=== PATIENT | male | born 1945 | race Caucasian/White ===

== ENCOUNTER 2017-01-03 12:50 | Inpatient (IN) | payer MEDICARE, MEDICAID ==
[~2017-01-03] VITALS: Ht 162.6 cm; Wt 82.0 kg
[2017-01-03] MEDS ORDERED: CLINDAMYCIN 900 MG/D5W (PMX) 50 ML IVPB STA (15:25)
[2017-01-03] MEDS ORDERED: ONDANSETRON 4 MG INJ IV STA (15:25)
[2017-01-03] MEDS ORDERED: VANCOMYCIN 1 GM (PMX) 250 ML IVPB STA (15:25)
[2017-01-03] MEDS ORDERED: PIPER-TAZO 3.375 GM IV (PMX) 100 ML IVPB STA (15:25)
[2017-01-03] MEDS ORDERED: morphine 4 MG/ML VIAL IV STA (15:25)
--- NOTE | 2017-01-03 15:39 | ERA ---
ER Documentation Chief Complaint Date/Time DATE: 01/03/17 TIME: 15:27 Chief Complaint left knee pain x 3 weeks, redness and swelling to lower leg noted HPI This is a very pleasant 71-year-old male with known history of non-insulin- dependent diabetes and hypertension. The patient presents to the emergency department today complaining of left knee pain that has been present for approximately 3 weeks. The patient states that the pain began when he was in [place] when he noticed a sudden onset of severe swelling warmth and tenderness of the left knee that extended down into the left lower extremity. The patient denies any trauma to the left knee or lower extremity. He denies any previous joint infections, no pre-existing joint diseases, or prosthesis. He has no history of IV drug use or endocarditis. The patient denied any insect bites to the left lower extremity. He was admitted to a hospital in [place] for 2 weeks where he received IV antibiotics for cellulitis of the left lower extremity. He completed the antibiotic 7 days prior to arrival. The patient had been given a prescription of acetaminophen for analgesic control and [place]. He states however he returns to the emergency department today as the swelling has improved the pain of the left knee and left lower extremity still persists and is 10 out of 10 in intensity the patient states he has had no fevers or shaking or chills. He denies any chest pain or pressure that radiates to the neck arm back or jaw. He has no shortness of breath at rest or exertion. ROS All systems reviewed and are negative except as per history of present illness. Allergies Allergies: Coded Allergies: No Known Allergy (Unverified , 01/03/17) PMhx/Soc History of Surgery: Yes (APPENIDX) Anesthesia Reaction: No Hx Neurological Disorder: No Hx Respiratory Disorders: Yes (ASTHMA) Hx Psychiatric Problems: No Hx Miscellaneous Medical Probl: Yes (DM) Hx Alcohol Use: No Hx Substance Use: No Hx Tobacco Use: No Smoking Status: Never smoker Physical Exam Vitals Vital Signs Date Time Temp Pulse Resp B/P Pulse Ox O2 Delivery O2 Flow Rate FiO2 01/03/17 12:57 98.6 94 18 161/67 97 Physical Exam Constitutional:Well-developed. Well-nourished. HEENT:Normocephalic. Atraumatic.Pupils were equal round reactive to light. Moist mucous membranes.No tonsillar exudates. Neck: No nuchal rigidity. No lymphadenopathy. No posterior cervical spine tenderness or step-offs. Respiratory: Not using accessory muscles of respiration.Lungs were clear to auscultation bilaterally. No rhonchi. No rales. No wheezing. Cardiovascular: Regular rate regular rhythm.No murmurs. No rubs were appreciated.S1, S2 normal. Distal pulses are palpable 2+ bilaterally. GI: Abdomen was soft. Nontender. Non Distended. No pulsatile abdominal masses or bruits. No rebound. No guarding. Bowel sounds were present and normal. Muscle skeletal: Patient is full range of motion the bilateral upper extremities. Tenderness swelling and warmth isolated to the left knee with extremely painful joint motion in all planes. Left calf tenderness with no asymmetrical swelling. Negative Homans sign peer Skin: No petechia, no purpura. No lesions on the palms or the soles of the feet. No maculopapular rash. Erythremia warmth and tenderness over the proximal third of the left anterior aspect of the lower extremity. NEURO: Patient was alert, awake, orientated x3.No facial droop. Gait observed and normal with no ataxia.Speech had regular rate and rhythm. No focal neurological deficits. Result Diagram: 01/03/17 1635 01/03/17 1635 Results 24 hrs Laboratory Tests Test 01/03/17 16:35 Activated Partial Thromboplast Time 34.0Sec Alanine Aminotransferase (ALT/SGPT) 19IU/L Albumin 3.1g/dl Albumin/Globulin Ratio 0.88 Alkaline Phosphatase 94IU/L Anion Gap 16 Aspartate Amino Transf (AST/SGOT) 16IU/L Basophils # 0.010^3/ul Basophils % 0.3% Blood Urea Nitrogen 17mg/dl C-Reactive Protein 8.1mg/dl Calcium Level 8.7mg/dl Carbon Dioxide Level 30mmol/L Chloride Level 101mmol/L Creatinine 0.70mg/dl Direct Bilirubin 0.00mg/dl Eosinophils # 0.310^3/ul Eosinophils % 3.0% Erythrocyte Sedimentation Rate 65mm/Hr Globulin 3.50g/dl Glucose Level 195mg/dl Hematocrit 36.8% Hemoglobin 11.5g/dl INR International Normalized Ratio 1.04 Indirect Bilirubin 0.3mg/dl Lipase 112U/L Lymphocytes # 1.210^3/ul Lymphocytes % 11.8% Mean Corpuscular Hemoglobin 27.6pg Mean Corpuscular Hemoglobin Concent 31.3g/dl Mean Corpuscular Volume 88.5fl Mean Platelet Volume 11.7fl Monocytes # 1.010^3/ul Monocytes % 9.3% Neutrophils # 7.810^3/ul Neutrophils % 74.7% Nucleated Red Blood Cells # 0.010^3/ul Nucleated Red Blood Cells % 0.0/100WBC Platelet Count 08769^3/UL Potassium Level 3.9mmol/L Prothrombin Time 13.6Sec Prothrombin Time Ratio 1.1 Red Blood Count 4.1610^6/ul Red Cell Distribution Width 14.7% Sodium Level 143mmol/L Total Bilirubin 0.3mg/dl Total Protein 6.6g/dl White Blood Count 10.410^3/ul Current Medications Medications (Trade) Dose Ordered Sig/Wale Route PRN Reason Start Time Stop Time Status Last Admin Dose Admin Morphine Sulfate (morphine) 4 mg ONCE STAT IV 01/03/17 15:25 01/03/17 15:26 DC 01/03/17 17:04 Ondansetron HCl 4 mg 4 mg ONCE STAT IV 01/03/17 15:25 01/03/17 15:26 DC 01/03/17 17:04 Vancomycin HCl 250 ml @ 125 mls/hr ONCE STAT IVPB 01/03/17 15:25 01/03/17 17:24 DC 01/03/17 17:03 Clindamycin HCl/ Dextrose 50 ml @ 50 mls/hr ONCE STAT IVPB 01/03/17 15:25 01/03/17 16:24 DC Piperacillin Sod/ Tazobactam Sod (Zosyn 3.375gm/ 100 ml (Pmx)) 100 ml @ 100 mls/hr ONCE STAT IVPB 01/03/17 15:25 01/03/17 16:24 DC 01/03/17 17:03 Ondansetron HCl (Zofran Inj) 4 mg BRIDGE ORDER PRN IV NAUSEA AND/OR VOMITING 01/03/17 18:30 01/04/17 18:29 Acetaminophen (Tylenol Tab) 650 mg ER BRIDGE PRN PO MILD PAIN/FEVER 01/03/17 18:30 01/04/17 18:29 Lidocaine (Xylocaine 1% (Mdv) 20 ml) 20 ml ONCE STAT INJ 3/7/17 18:30 01/03/17 18:32 DC Procedures/MDM The patient presented to the emergency department with a spreading erythematous superficial infection of the skin and subcutaneous tissues. My differential diagnosis included but was not limited to necrotizing fasciitis, lymphangitis, thrombophlebitis, deep vein thrombosis, allergic reaction, neoplasm, gout or abscess. Predisposing factors of the progressive spread of erythema, warmth, pain and tenderness was considered such as lymphedema, tinea pedis, open wounds, prior trauma or surgery, pre-existing skin lesion (furuncle), retained foreign body, injection drug use or vascular or immune compromise. The patient was placed on antibiotics to cover Staphylococcus aureus, including resistant strains such as community-acquired methicillin-resistant S. aureus after blood cultures were obtained. I administered vancomycin, Zosyn and clindamycin. The patient received intravenous morphine and Zofran for analgesic control The patient had presented with a single painful swollen warm tender joint that had been present for the past 3 weeks. Given that the patient has a history of diabetes I did feel the patient required admission for the IV antibiotics. I did obtain a plain radiograph to identify an effusion and baseline status of the joint. There is no secondary changes to suggest osteomyelitis. As obtain an ultrasound of the left lower extremity which was read by the radiologist and indicated the following: Large complex fluid collection in the subcutaneous soft tissues of the left medial calf. Differential diagnosis includes an abscess versus a liquefying hematoma. I did obtain an MRI which was more sensitive in order to rule out complication such as an underlying abscess or again osteomyelitis. The patient's pain was not out of proportion and therefore did not feel his symptoms were result of necrotizing fasciitis. I also obtained a venous duplex ultrasound of the left lower extremity which indicated there is no evidence of a deep vein thrombosis As obtained a chest radiograph which indicated the following reviewed by myself and the radiologist: Small left pleural effusion with associated basilar atelectasis/infiltrate. The patient had not complained of a productive or nonproductive cough and my clinical suspicion for pneumonia was low. However the patient had been started on broad-spectrum antibiotics for suspected septic arthritis. Procedure note: The patient was prepped and draped in a sterile fashion. 2 cc of 1% lidocaine without epinephrine was used to anesthetize the lateral aspect of the left knee in order to perform an arthrocentesis. Very minimal synovial fluid was obtained. The small amount was obtained was sent for culture. The patient tolerated the procedure well. I placed a consult to the orthopedic surgeon Dr. Campos for further evaluation upon admission. The patient will be admitted in serious condition to the hospitalist Dr. Cantu. Patient will go to the medical surgical floor. Departure Diagnosis: Primary Impression: Septic arthritis of knee, left Qualified Code: M00.9 - Pyogenic arthritis of left knee joint, due to unspecified organism Condition: Serious VICENTE STRINGER Jan 03, 2017 15:38
--- NOTE | 2017-01-03 15:42 | RADRPT ---
PROCEDURE: US Lower extremity Venous. CLINICAL INDICATION: Left leg swelling TECHNIQUE: Multiple sonographic images of the left lower extremity deep venous system was obtained utilizing grayscale, color-flow, compressive sonography and doppler imaging with augmentation. The images were reviewed on a PACS workstation. COMPARISON: None. FINDINGS: There is normal compressibility and flow within the left common femoral, superficial femoral, seasonal greenery bundler ior tibial, peroneal and popliteal veins. RPTAT: AA IMPRESSION: No sonographic evidence for deep venous thrombosis. .Cuate Avalos MD, MD Date Time Electronically viewed and signed by .Cuate Avalos MD, on 01/03/2017 15:42 .S/
--- NOTE | 2017-01-03 16:10 | RADRPT ---
PROCEDURE: US left calf CLINICAL INDICATION: Pain and swelling TECHNIQUE: Multiple sonographic images of the left calf were obtained utilizing a linear array tra nsducer with grayscale and color-flow and a Doppler imaging. The images were reviewed on a high-reso lution PACS workstation. COMPARISON: No prior studies are available for comparison. FINDINGS: There is a large complex fluid collection in the left medial calf measuring 8.6 x 2.8 cm. RPTAT: AA IMPRESSION: Large complex fluid collection in the subcutaneous soft tissues of the left medial calf. Differenti al diagnosis includes an abscess versus a liquefying hematoma. .Cuate Avalos MD, MD Date Time Electronically viewed and signed by .Cuate Avalos MD, on 01/03/2017 16:10 .S/
--- NOTE | 2017-01-03 16:24 | RADRPT ---
PROCEDURE: XR Chest 1 View. CLINICAL INDICATION: Abnormal breath sounds, abdominal pain. TECHNIQUE: AP view of the chest were obtained. COMPARISON: None. FINDINGS: The heart size is within normal limits. Calcified atherosclerosis is noted in the aorta. Blunting l eft costophrenic angle is observed. Atelectasis versus mild infiltrates are noted at the left lung base. Subsegmental atelectasis is seen at the right lung base. The osseous structures are osteopeni c, but appear grossly intact. Degenerative changes are seen in the shoulders. IMPRESSION: Calcified atherosclerosis in the aorta. Small left pleural effusion with associated basilar atelectasis/infiltrate. Subsegmental atelectasis at the right lung base. RPTAT: AA .Storm Blair MD, Date Time Electronically viewed and signed by .Storm Blair MD, MD on 01/03/2017 16:24 .P/
--- NOTE | 2017-01-03 16:27 | RADRPT ---
PROCEDURE: XR Knee 3 Views. CLINICAL INDICATION: Left knee pain TECHNIQUE: AP, lateral and tunnel view of the left knee were obtained. The images reviewed on a [employer] workstation. COMPARISON: None. FINDINGS: Osteopenia is identified. The osseous structures appear intact No destructive bony lesions are obs erved. Severe narrowing of the medial joint compartment is identified. Mild narrowing of the later al and patellofemoral joint compartments is observed. Subtle 3 mm calcification is seen inferior to the patella. Questionable, small suprapatellar joint effusion is identified. IMPRESSION: Osteopenia. 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 Mild osteoarthritis in the lateral and patellofemoral joint compartments. Questionable, small suprapatellar joint effusion. Etiology is uncertain. If further characterizati on is needed CT or MRI could be helpful. Small 3 mm calcification inferior to the patella. Finding could reflect a small free body in the kn ee joint. If further characterization is needed CT could be helpful. If there is high clinical suspicion for traumatic injury, further evaluation with CT should be consi dered. If further characterization is needed CT or MRI could be helpful. RPTAT: AA .Storm Blair MD, Date Time Electronically viewed and signed by .Storm Blair MD, on 01/03/2017 16:26 .P/
[2017-01-03 16:49] LABS: ADD SCAN DIFF NO
[2017-01-03 16:54] LABS: BASOPHILS % 0.3 % (0.0-2.0); EOSINOPHILS # 0.3 10^3/ul (0.0-0.5); HEMATOCRIT 36.8 % (42.0-52.0); HEMOGLOBIN 11.5 g/dl (14.0-18.0); LYMPHOCYTES # 1.2 10^3/ul (0.8-2.9); LYMPHOCYTES % 11.8 % (15.0-51.0); MEAN CORPUSCULAR HEMOGLOBIN 27.6 pg (29.0-33.0); MEAN CORPUSCULAR HGB CONC 31.3 g/dl (32.0-37.0); MEAN CORPUSCULAR VOLUME 88.5 fl (82.0-101.0); MEAN PLATELET VOLUME 11.7 fl (7.4-10.4); MONOCYTES % 9.3 % (0.0-11.0); NEUTROPHIL # 7.8 10^3/ul (1.6-7.5); NEUTROPHILS % 74.7 % (39.0-77.0); PLATELET COUNT 266 10^3/UL (140-415); RED BLOOD COUNT 4.16 10^6/ul (4.70-6.10); RED CELL DISTRIBUTION WIDTH 14.7 % (11.5-14.5); WHITE BLOOD COUNT 10.4 10^3/ul (4.8-10.8)
[2017-01-03 17:06] LABS: INR 1.04; PROTIME 13.6 Sec (12.2-14.2); PT RATIO 1.1
[2017-01-03 17:07] LABS: ALBUMIN 3.1 g/dl (3.3-4.9); POTASSIUM 3.9 mmol/L (3.5-5.1)
[2017-01-03 17:09] LABS: CREATININE 0.7 mg/dl (0.61-1.24)
[2017-01-03 17:10] LABS: ALBUMIN/GLOBULIN RATIO 0.88; BILIRUBIN,INDIRECT 0.3 mg/dl (0-1.1); BILIRUBIN,TOTAL 0.3 mg/dl (0.2-1.3); CALCIUM 8.7 mg/dl (8.4-10.2); TOTAL PROTEIN 6.6 g/dl (6.1-8.1)
[2017-01-03] MEDS ORDERED: ONDANSETRON 4 MG INJ IV PRN (18:30)
[2017-01-03] MEDS ORDERED: ACETAMINOPHEN 325 MG TAB PO PRN (18:30)
[2017-01-03] MEDS ORDERED: LIDOCAINE 1% (MDV) 20 ML INJ INJ STA (18:30)
[2017-01-03 19:30] VITALS: TEMP 98.3
[2017-01-03] MEDS ORDERED: GLUCOSE GEL 15 GRAM TUBE PO PRN ×2 (19:30)
[2017-01-03] MEDS ORDERED: GLUCOSE GEL 15 GRAM TUBE BUCCAL PRN (19:30)
[2017-01-03] MEDS ORDERED: GLUCAGON 1 MG INJ IM PRN (19:30)
[2017-01-03] MEDS ORDERED: DEXTROSE 50% 50 ML SYRINGE IV PRN ×2 (19:30)
[2017-01-03] MEDS ORDERED: VANCOMYCIN IV PER PHARMACY XX SCH (19:30)
--- NOTE | 2017-01-03 21:56 | HP ---
DATE OF ADMISSION: 01/03/2017 PRESENTING COMPLAINT: Left knee pain. HISTORY OF PRESENTING COMPLAINT: Mr. Henry is a pleasant 71-year-old male who was recently in [place] late last year and at that time was managed for left lower extremity cellulitis with inpatient hospitalization, IV antibiotics. He was discharged on oral medications and seemed to be getting better but developed knee pain over the last 3 weeks associated with warmth and swelling. He does not recall trauma to the lower extremity, and this affects only his left knee. It has been associated with difficulty walking, has been trying to control it with oral analgesics. However, the pain continues to worsen, so he came to the emergency room to be evaluated. He denies chest pain. Denies nausea or vomiting. Denies fever. He does have a history of diabetes, high blood pressure and dyslipidemia. PAST MEDICAL HISTORY: 1. High blood pressure. 2. Diabetes. 3. Dyslipidemia. 4. Recent hospitalization for left lower extremity cellulitis. PAST SURGICAL HISTORY: Appendectomy. ALLERGIES: HE HAS NO KNOWN DRUG ALLERGIES. HOME MEDICATIONS: His home medications are not available for review at this time. REVIEW OF SYSTEMS: I did a 12-point review of systems, and pertinent findings are as noted in HPI. FAMILY HISTORY: Noncontributory. No one else at home has similar symptoms. SOCIAL HISTORY: The patient is and sexually active with his alone. The patient denies tobacco, alcohol or illicit drug use. PHYSICAL EXAMINATION: VITAL SIGNS: Temperature 98.6, pulse 94, respirations 18, blood pressure 161/67 , saturations 97% on room air. GENERAL: Elderly male who is currently comfortable, alert and oriented. HEENT: Head is normocephalic. Pupils are equal and reactive. NECK: Supple. CHEST: Clear. CARDIOVASCULAR: S1, S2. No murmurs. ABDOMEN: Soft, nontender, nondistended with normoactive bowel sounds. LOWER EXTREMITIES: There was tenderness and swelling noted in the left knee with pain with passive movements. Swelling extended from the left calf superiorly all the way to just above the knee. His feet, however, had just mild edema. His right lower extremity was unremarkable. There was no significant rash other than the erythema. Rest of his extremities were normal. Pulses were normal. NEUROLOGIC: He had no focal deficits. SKIN: Findings were essentially as noted in the extremities without any other findings elsewhere. LABORATORY VALUES: His WBC count was normal, but his hemoglobin was low at 11.5. His complete metabolic profile was unremarkable save for a mildly low albumin level. His CRP was elevated at 8.1, and his sedimentation rate was also elevated at 6.5. He did have hypochromasia and a mild microcytosis, but platelet count was normal. Coagulation profile was unremarkable. IMAGING: Had multiple imaging studies summarized as follows. Knee x-ray showed severe osteoarthritis in the medial joint compartment of the left knee, osteopenia. Mild osteoarthritis in lateral and patellofemoral joint. Questionable small suprapatellar joint effusion. Etiology is uncertain. MRI could be helpful. Small 3 mm calcification inferior to the patella which could reflect a small free body in the knee joint. He had a left lower extremity venous Doppler that was negative for DVT, and then he had a soft-tissue ultrasound of the left calf that showed a large complex fluid collection in subcutaneous tissue of the left medial calf suggestive for an abscess versus a liquefying hematoma and a chest x-ray that showed atherosclerosis in the aorta, small left pleural effusion with associated basilar atelectasis versus infiltrate as well as subsegmental atelectasis in the right lung base. ASSESSMENT: A 71-year-old male with history of diabetes mellitus who presents with left knee pain, is managed as follows: 1. Left knee erythema and swelling concerning for left knee septic arthritis. 2. Recent left lower extremity cellulitis managed inpatient with intravenous antibiotics. 3. Probable left calf abscess. 4. Hypochromic anemia, rule out iron deficiency. 5. Left basilar atelectasis/infiltrate without clinical symptoms of pneumonia. 6. High blood pressure with suboptimal control. 7. Diabetes mellitus type 2. 8. Dyslipidemia. 9. Chronic asthma without exacerbation. PLAN: Admit patient. I believe patient will benefit from medical/surgical floor. ER is going to tap the knee and send for cultures and fluid analysis. We are also going to do an MRI of the knee and follow up the findings. The patient will also need orthopedic consultation, and Dr. Campos can follow in case patient will need surgical intervention for septic arthritis. We will commence empiric antibiotics, broad spectrum, and have Infectious Disease follow the patient as well. For his other comorbidities, we will be obtaining his home medications and continued them in-house. In the interim, will put him on a diabetic diet, put him on a sliding scale regimen and go from there. Broad- spectrum antibiotics should cover for pneumonia if indeed the infiltrate is real , but again, I have low suspicion for this, and further interventions will depend on his clinical course. He will be put on prophylaxis with an H2 ginny as well as Lovenox. This plan has been discussed with patient, questions have been answered. Admission time has been more than 50 minutes. Dictated By: RIKY BLOOD MD, BA/BRANDON Conf#: [id number] DID#: [id number] MTDD
[2017-01-03 22:00] VITALS: BP 138/67; RESP 18
[2017-01-03] MEDS: SOD CHLORIDE 0.9% 1,000 ML IV SCH (22:10)
--- NOTE | 2017-01-03 22:12 | RADRPT ---
AMENDMENT: 01/03/2017 10:25:07 PM Augustus Patterson MD ADDENDUM: Correction of online affiliate marketing manager error: IMPRESSION: 3. Large mildly septated fluid collection in the medial aspect of the mid gastrocnemius. PROCEDURE: Noncontrast MRI of the left leg. CLINICAL INDICATION: Severe left knee pain. Impaction of the lower leg for 2 weeks. Concern for osteomyelitis versus abscess. TECHNIQUE: Noncontrast MRI examination of the left lower extremity from knee to ankle, with axial, sagittal and coronal images. T1-weighted, T2-weighted, proton density, STIR and fat saturation tech niques were employed. COMPARISON: The plain film series dated today, earlier in the day. FINDINGS: There is a heterogeneous low signal on T1-weighted series at the tibial plateau, proximal tibial met aphysis proximal tibial metaphysis and the anterior proximal tibial diaphysis is compatible with ost eomyelitis. This demonstrates increased fluid signal on T2-weighted and STIR sequences, also compati ble with osteomyelitis. A large complex fluid collection is identified over the anterior and medial aspect of the tibial fausto teau, measuring up to about 17 mm in thickness anteriorly. This extends inferiorly from about the r egion of the distal patellar tendon to upper tibial diaphysis. The complex fluid collection contact s anterolateral superior tibial periosteum. This complex collection demonstrates an irregular somewhat thickened margin, compatible with an absc ess. Abscess in contact with periosteum would support radiographic diagnosis of osteomyelitis at th e proximal tibia, described above. Contrast enhanced MRI examination may be of further use. Additionally, a large mildly septated fluid collection is seen in the medial gastrocnemius, measurin g 14 cm in the cranial caudad dimension by 4 mm in the AP dimension by 3 cm in the transverse dimens ion. This may represent the region of infection. If there is concern for a cystic neoplasm in this region a contrast enhanced MRI would be of further use. There is no acute fracture or dislocation. There is a left knee joint effusion. Remaining soft tiss ues of the right leg are substantially unremarkable. Partially visualized right leg is unremarkable. IMPRESSION: 1. Osteomyelitis of the proximal tibia extending from the tibial plateau to the proximal diaphysis. 2. Complex irregular fluid collection most likely represents an abscess, and this is contiguous wit h the periosteum of the tibia in the region of osteomyelitis. 3. Large mildly septated fluid collection in the medial of midline gastrocnemius. 4. IV contrast enhanced MRI examination would be of further use to evaluate the abscess, as well as , to exclude a cystic gastrocnemius neoplasm if clinically required. RPTAT: UU Laura Patterson Physician Date Time Electronically viewed and signed by Laura Patterson Physician on 01/03/2017 22:25 RS/
[2017-01-03] MEDS: DOCUSATE SODIUM 100 MG CAP PO SCH (22:15)
[2017-01-03] MEDS: FAMOTIDINE 20 MG TAB PO SCH (22:15)
[2017-01-03] MEDS: HYDROCODONE/APAP (5/325) TAB PO PRN (22:16)
--- NOTE | 2017-01-03 22:24 | RADRPT ---
PROCEDURE: Noncontrast MRI of the left knee. CLINICAL INDICATION: Severe left knee pain. Infection of the lower leg for 2 weeks. Concern for o steomyelitis versus abscess. TECHNIQUE: Noncontrast MRI examination of the left knee, with axial, sagittal and coronal images. Proton density, with and without fat saturation, series were employed. COMPARISON: Left knee plain film series dated today, earlier in the day. FINDINGS: There is a heterogeneous abnormal proton density signal, with and without fat saturation, at the tib ial plateau, proximal tibial metaphysis proximal tibial metaphysis and the anterior proximal tibial diaphysis is compatible with osteomyelitis. A large complex fluid collection is identified over the anterior and medial aspect of the tibial fausto teau, measuring up to about 17 mm in thickness anteriorly. This extends inferiorly from about the r egion of the distal patellar tendon to upper tibial diaphysis. The complex fluid collection contact s anterolateral superior tibial periosteum. This complex collection demonstrates an irregular somewhat thickened margin, compatible with an absc ess. Abscess in contact with periosteum would support radiographic diagnosis of osteomyelitis at th e proximal tibia, described above. Contrast enhanced MRI examination may be of further use. Additionally, edema is seen in the anterior tibialis, the posterior tibialis and popliteus at the hi gh left leg. Partially visualized superior aspect of fluid collection within the medial gastrocnemiu s. Tear of the posterior body of the medial meniscus. The lateral meniscus appears substantially intac t. Increased fluid signal throughout the ACL compatible with age indeterminate nonspecific intermed iate grade injury, and intact fibers are identified. The PCL and remaining collateral ligamentous st ructures appear intact. There is no acute fracture or dislocation. There is a moderate left knee joint effusion. Remaining soft tissues of the right leg are substantially unremarkable. IMPRESSION: 1. Osteomyelitis of the proximal tibia extending from the tibial plateau to the proximal diaphysis. 2. Complex irregular fluid collection most likely represents an abscess, and this is contiguous wit h the periosteum of the tibia in the region of osteomyelitis. 3. IV contrast enhanced MRI examination would be of further use to evaluate the abscess. 4. Moderate left knee joint effusion, tear of the posterior horn of the medial meniscus and interme diate grade ACL injury. RPTAT: [facility] Laura Patterson Physician Date Time Electronically viewed and signed by Laura Patterson, Physician on 01/03/2017 22:24 RS/
[2017-01-03 22:27] VITALS: Ht 162.6 cm; Wt 82.0 kg
[2017-01-03 22:32] VITALS: BP 138/67; PULSE 67; RESP 19
[2017-01-03] MEDS: CEFTRIAXONE 2 GM/50 ML (PMX) 50 ML IVPB SCH (22:35)
[2017-01-03] MEDS: INSULIN ASPART [NOVOLOG] 3 ML PEN SC SCH (22:36)
[2017-01-03] MEDS ORDERED: GLYB1TAB3 PO (23:11)
[2017-01-03] MEDS ORDERED: TELM80TA4 PO (23:11)
[2017-01-03] MEDS ORDERED: HYDR25TA6 PO (23:11)
[2017-01-04] MEDS: SOD CHLORIDE 0.9% 1,000 ML IV SCH ×3 (04:13→15:22)
[2017-01-04] MEDS: VANCOMYCIN 1.25 GM in SOD CHLORIDE 0.9% 250 ML IVPB SCH ×2 (04:14→16:13)
[2017-01-04 07:26] LABS: ADD SCAN DIFF NO
[2017-01-04 07:40] LABS: POTASSIUM 4.4 mmol/L (3.5-5.1)
[2017-01-04 07:43] LABS: CREATININE 0.68 mg/dl (0.61-1.24)
[2017-01-04 07:44] LABS: CALCIUM 8.1 mg/dl (8.4-10.2); CHOL/HDL RATIO 4.3 RATIO
[2017-01-04 07:56] LABS: BASOPHILS % 0.3 % (0.0-2.0); EOSINOPHILS # 0.4 10^3/ul (0.0-0.5); HEMATOCRIT 32.1 % (42.0-52.0); LYMPHOCYTES % 11.4 % (15.0-51.0); MEAN CORPUSCULAR HEMOGLOBIN 27.9 pg (29.0-33.0); MEAN CORPUSCULAR HGB CONC 31.2 g/dl (32.0-37.0); MEAN CORPUSCULAR VOLUME 89.7 fl (82.0-101.0); MEAN PLATELET VOLUME 11.2 fl (7.4-10.4); MONOCYTE # 0.8 10^3/ul (0.3-0.9); MONOCYTES % 9.7 % (0.0-11.0); NEUTROPHIL # 6.4 10^3/ul (1.6-7.5); NEUTROPHILS % 73.8 % (39.0-77.0); PLATELET COUNT 257 10^3/UL (140-415); RED BLOOD COUNT 3.58 10^6/ul (4.70-6.10); RED CELL DISTRIBUTION WIDTH 14.5 % (11.5-14.5); WHITE BLOOD COUNT 8.7 10^3/ul (4.8-10.8)
[2017-01-04 07:58] VITALS: BP 130/62; RESP 21
[2017-01-04] MEDS: DOCUSATE SODIUM 100 MG CAP PO SCH ×2 (08:00→20:12)
[2017-01-04] MEDS: HYDROCODONE/APAP (5/325) TAB PO PRN ×3 (08:00→23:11)
[2017-01-04] MEDS: FAMOTIDINE 20 MG TAB PO SCH ×2 (08:00→20:12)
[2017-01-04] MEDS: INSULIN ASPART [NOVOLOG] 3 ML PEN SC SCH ×4 (08:02→20:13)
[2017-01-04 08:03] LABS: IRON 12 ug/dl (35-150)
[2017-01-04 08:17] LABS: TOTAL IRON BINDING CAPACITY 235 ug/dl (241-421)
[2017-01-04 08:30] LABS: THYROID STIMULATING HORMONE 1.92 MIU/L (0.465-4.680)
[2017-01-04] MEDS: HYDROCHLOROTHIAZIDE 25 MG TAB PO SCH (08:50)
[2017-01-04] MEDS: LOSARTAN 50 MG TAB PO SCH (08:51)
[2017-01-04] MEDS ORDERED: morphine 10 MG INJ IM ONE (09:49)
[2017-01-04] MEDS ORDERED: morphine 2 MG INJ IV ONE (10:00)
--- NOTE | 2017-01-04 16:03 | PN ---
Date/Time of Note Date/Time of Note DATE: 01/04/17 TIME: 15:53 Assessment/Plan VTE Prophylaxis VTE Prophylaxis Intervention: heparin Lines/Catheters IV Catheter Type (from Nrs): Peripheral IV Urinary Cath still in place: No Assessment/Plan Assessment/Plan 1. Left knee infection with proximal tebial osteomyelitis, antibiotics(rocephin /vanco) ortho Dr. Campos(called) 2. Recent left lower extremity cellulitis managed inpatient with intravenous antibiotics. 3. Probable left calf abscess. 4. Hypochromic anemia, rule out iron deficiency. 5. Left basilar atelectasis/infiltrate without clinical symptoms of pneumonia. 6. High blood pressure with suboptimal control. 7. Diabetes mellitus type 2. 8. Dyslipidemia. 9. Chronic asthma without exacerbation. Subjective 24 Hr Interval Summary Free Text/Dictation left knee pain. afebrile Exam/Review of Systems Vital Signs Vitals Vital Signs Date Time Temp Pulse Resp B/P Pulse Ox O2 Delivery O2 Flow Rate FiO2 01/04/17 07:58 98.1 74 21 130/62 97 01/03/17 22:32 Room Air Intake and Output 01/03/17 01/03/17 01/04/17 15:00 23:00 07:00 Intake Total 50 ml 1400 ml Output Total 300 ml Balance 50 ml 1100 ml Exam Constitutional: alert, oriented, well developed Psych: nl mood/affect, no complaints Head: atraumatic, normocephalic Eyes: EOMI, PERRL, nl conjunctiva, nl lids ENMT: nl external ears & nose, nl lips & teeth, nl nasal mucosa & septum Neck: non-tender, supple Respiratory: clear to auscultation, normal air movement, No congested cough, No crackles/rales, No diminished breath sounds, No intercostal retraction, No labored breathing, No other, No respirations, No tactile fremitus, No wheezing Cardiovascular: nl pulses, regular rate and rhythm, No S3, No S4, No bruits, No diastolic murmur, No edema, No gallop, No irregular rhythm, No jugular venous distention (JVD), No murmurs/extra sounds, No other, No rub, No systolic murmur Gastrointestinal: nl liver, spleen, non-tender, soft, No ascites, No bowel sounds, No distended, No firm, No hepatomegaly, No mass , No other, No rebound or guarding, No splenomegaly, No surgical scars, No tender Extremities: normal pulses, other (left knee swelling, warm, with pain), No calf tenderness, No clubbing, No cyanosis, No edema, No palpable cord, No pitting pedal edema Neurological: PROGRAM PRODUCTION SPECIALIST II-XII intact, nl mental status, nl speech, nl strength Skin: nl turgor Results Result Diagram: 01/04/17 0640 01/04/17 0640 Results 24 hrs Laboratory Tests Test 01/03/17 16:35 01/03/17 22:17 01/04/17 02:23 01/04/17 06:40 Activated Partial Thromboplast Time 34.0 Alanine Aminotransferase (ALT/SGPT) 19 Albumin 3.1 L Albumin/Globulin Ratio 0.88 Alkaline Phosphatase 94 Anion Gap 16 12 Aspartate Amino Transf (AST/SGOT) 16 Basophils # 0.0 0.0 Basophils % 0.3 0.3 Blood Urea Nitrogen 17 11 C-Reactive Protein 8.1 H Calcium Level 8.7 8.1 L Carbon Dioxide Level 30 32 H Chloride Level 101 102 Creatinine 0.70 0.68 Direct Bilirubin 0.00 Eosinophils # 0.3 0.4 Eosinophils % 3.0 4.0 Erythrocyte Sedimentation Rate 65 H Globulin 3.50 H Glucose Level 195 146 # Hematocrit 36.8 L 32.1 L Hemoglobin 11.5 L 10.0 L INR International Normalized Ratio 1.04 Indirect Bilirubin 0.3 Lipase 112 Lymphocytes # 1.2 1.0 Lymphocytes % 11.8 L 11.4 L Mean Corpuscular Hemoglobin 27.6 L 27.9 L Mean Corpuscular Hemoglobin Concent 31.3 L 31.2 L Mean Corpuscular Volume 88.5 89.7 Mean Platelet Volume 11.7 H 11.2 H Monocytes # 1.0 H 0.8 Monocytes % 9.3 9.7 Neutrophils # 7.8 H 6.4 Neutrophils % 74.7 73.8 Nucleated Red Blood Cells # 0.0 0.0 Nucleated Red Blood Cells % 0.0 0.0 Platelet Count 266 257 Potassium Level 3.9 4.4 Prothrombin Time 13.6 Prothrombin Time Ratio 1.1 Red Blood Count 4.16 L 3.58 L Red Cell Distribution Width 14.7 H 14.5 Sodium Level 143 142 Total Bilirubin 0.3 Total Protein 6.6 White Blood Count 10.4 8.7 Bedside Glucose 192 153 Cholesterol Level 86 L Cholesterol/HDL Ratio 4.3 HDL Cholesterol 20 L Iron Level 12 L LDL Cholesterol, Calculated 42 Magnesium Level 2.0 Percent Iron Saturation 5 L Thyroid Stimulating Hormone (TSH) 1.920 Total Iron Binding Capacity 235 L Triglycerides Level 118 Test 01/04/17 07:47 01/04/17 12:05 Bedside Glucose 143 154 Medications Medications Current Medications Ceftriaxone Sodium (Rocephin) 50 ml @ 100 mls/hr Q24H IVPB Last administered on 01/03/17 22:35; Admin Dose 100 MLS/HR; Start 01/03/17 at 19:30 Docusate Sodium (Colace) 100 mg BID PO Last administered on 01/04/17 08:00; Admin Dose 100 MG; Start 01/03/17 at 21:00 Acetaminophen/ Hydrocodone Bitart ([place] (5/325)) 1 tab Q6H PRN PO pain Last administered on 01/04/17 08:00; Admin Dose 1 TAB; Start 01/03/17 at 19:30 Famotidine 20 mg 20 mg BID PO Last administered on 01/04/17 08:00; Admin Dose 20 MG; Start 01/03/17 at 21:00 Sodium Chloride (NS) 1,000 ml @ 125 mls/hr Q8H IV Last administered on 15:22; Admin Dose 125 MLS/HR; Start 01/03/17 at 19:30 Miscellaneous Information 1 ea NOTE XX ; Start 01/03/17 at 19:30 Glucose (Glutose) 15 gm Q15M PRN PO DECREASED GLUCOSE; Start 01/03/17 at 19:30 Glucose (Glutose) 22.5 gm Q15M PRN PO DECREASED GLUCOSE; Start 01/03/17 at 19:30 Dextrose (D50w Syringe) 25 ml Q15M PRN IV DECREASED GLUCOSE; Start 01/03/17 at 19:30 Dextrose (D50w Syringe) 50 ml Q15M PRN IV DECREASED GLUCOSE; Start 01/03/17 at 19:30 Glucagon (Glucagen) 1 mg Q15M PRN IM DECREASED GLUCOSE; Start 01/03/17 at 19:30 Glucose 15 gm 15 gm Q15M PRN BUCCAL DECREASED GLUCOSE; Start 01/03/17 at 19:30 Vancomycin HCl/ Sodium Chloride (Vancocin/NS) 250 ml @ 83.333 mls/ hr Q12H IVPB Last administered on 01/04/17 04:14; Admin Dose 83.333 MLS/HR; Start at 04:00 Hydrochlorothiazide (Hydrochlorothiazide) 25 mg DAILY PO Last administered on 08:50; Admin Dose 25 MG; Start 01/04/17 at 09:00 Losartan Potassium (Cozaar) 100 mg DAILY PO Last administered on 01/04/17 08:51 ; Admin Dose 100 MG; Start 01/04/17 at 09:00 Miscellaneous Information (*Rx Drug Level Order Reminder*) VANCOMYCIN TROUGH 01/05 AT 0300 ONCE ONCE XX ; Start 01/05/17 at 03:00; Stop 01/05/17 at 03:01 EVELINA LUNDBERG MD Jan 04, 2017 16:03
[2017-01-04] MEDS: CEFTRIAXONE 2 GM/50 ML (PMX) 50 ML IVPB SCH (20:12)
[2017-01-04 20:18] VITALS: BP 160/69; RESP 20
[2017-01-04 21:00] VITALS: BP 152/67; PULSE 73
[2017-01-05] MEDS ORDERED: NA PHOSPHATE/BIPHOS 133 ML ENEMA PR PRN (00:30)
[2017-01-05] MEDS ORDERED: BISACODYL 10 MG SUPP PR PRN (00:30)
--- NOTE | 2017-01-05 00:35 | CONS ---
DATE OF ADMISSION: 01/03/2017 DATE OF CONSULTATION: 01/04/2017 TYPE OF CONSULTATION: 01/04/2017 HISTORY OF PRESENT ILLNESS: The patient is a 71-year-old male who was admitted on 01/03/2017 when salina lopez came to the emergency room complaining of painful swelling involving left knee and left leg. Acco rding to the patient, he developed painful swelling about 3 weeks ago while he was vacationing in [facility] without any memorable trauma. There were no memorable injuries or cuts or insect bites. There were no infections in the remainder of his body. At that time, he was admitted to the hospital in [place] and he was treated with IV antibiotics for 2 weeks under diagnostic impression of infection o f the left knee. About 1 week prior to his admission, he was released from the hospital in [place]; however, even though he swelling was not reduced he was experiencing increasing pain involving his l eft knee and left upper part of the left leg and he came to the emergency room. At the time of his ER visit, he was afebrile and there was no obvious leukocytosis. There was a yrn nful swelling around the left knee and proximal portion of the left leg with tenderness and swelling . PHYSICAL EXAMINATION: My examination revealed a 71-year-old male who was not in acute distress; how ever, he was having considerable pain involving the left knee and any attempted range of motion was provoking considerable pain. The effusion in the left knee was mild; however, there was an obvious cystic swelling over the anteromedial aspect of the proximal leg starting from the level of the tibi al plateau and extending downward to the distal portion of the diaphysis. There was mild warmth maryam und the left knee and proximal portion of the left leg with tenderness and increased warmth and some redness. There was no neurovascular compromise in the left lower extremity and his dorsalis pedis and tibiali s posterior was palpable. X-rays of the left knee were showing osteoarthritis involving the left knee with worse involvement o n the medial compartment. There were some questionable suprapatellar effusions. There seems to be a defect in the lower pole of the left patella; however, this was not clear. The MRI scan of the kn ee revealed the presence of heterogenous abnormal density signal over the tibial plateau and extendi ng downward along the tibial metaphysis. There was also a large complex fluid collection and the an terior and medial portion of the tibial plateau extending downward to the area of the upper diaphysi s of the tibia. There also seems to be some suprapatella fluid collection. DIAGNOSTIC IMPRESSION: Septic arthritis of the left knee with osteomyelitis involving proximal port ion of the left tibia and possibly involvement of the patella. RECOMMENDATIONS FOR TREATMENT: 1. Obtain additional diagnostic studies including WBC scan and repeated MRI of IV contrast. 2. Because of the possibility of amputation, he may need a transfer to a major medical center for a second opinion and higher level of care. Dictated By: ELIZABETH ERNANDEZ/BRANDON Conf#: [id number] DID#: [id number]
[2017-01-05] MEDS: AL HYDROX/MG HYDROX/SIMETH 30 ML CUP PO PRN ×2 (00:39→21:17)
[2017-01-05] MEDS: SOD CHLORIDE 0.9% 1,000 ML IV SCH ×3 (03:07→17:17)
[2017-01-05 03:29] LABS: ADD SCAN DIFF NO
[2017-01-05 03:44] LABS: POTASSIUM 4.4 mmol/L (3.5-5.1)
[2017-01-05 03:47] LABS: CREATININE 0.73 mg/dl (0.61-1.24)
[2017-01-05 03:48] LABS: BASOPHILS % 0.4 % (0.0-2.0); EOSINOPHILS # 0.3 10^3/ul (0.0-0.5); EOSINOPHILS % 3.3 % (0.0-7.0); HEMATOCRIT 32.2 % (42.0-52.0); HEMOGLOBIN 9.9 g/dl (14.0-18.0); LYMPHOCYTES # 0.9 10^3/ul (0.8-2.9); LYMPHOCYTES % 11.3 % (15.0-51.0); MEAN CORPUSCULAR HEMOGLOBIN 27.2 pg (29.0-33.0); MEAN CORPUSCULAR HGB CONC 30.7 g/dl (32.0-37.0); MEAN CORPUSCULAR VOLUME 88.5 fl (82.0-101.0); MEAN PLATELET VOLUME 10.8 fl (7.4-10.4); MONOCYTE # 0.7 10^3/ul (0.3-0.9); MONOCYTES % 9.1 % (0.0-11.0); NEUTROPHIL # 6.1 10^3/ul (1.6-7.5); NEUTROPHILS % 75.2 % (39.0-77.0); PLATELET COUNT 252 10^3/UL (140-415); RED BLOOD COUNT 3.64 10^6/ul (4.70-6.10); RED CELL DISTRIBUTION WIDTH 14.1 % (11.5-14.5); WHITE BLOOD COUNT 8.2 10^3/ul (4.8-10.8)
[2017-01-05] MEDS: VANCOMYCIN 1.25 GM in SOD CHLORIDE 0.9% 250 ML IVPB SCH (04:04)
[2017-01-05] MEDS: HYDROCODONE/APAP (5/325) TAB PO PRN ×2 (05:08→14:53)
[2017-01-05 07:53] VITALS: BP 149/67; RESP 18
[2017-01-05] MEDS: INSULIN ASPART [NOVOLOG] 3 ML PEN SC SCH ×4 (08:23→21:00)
[2017-01-05] MEDS: DOCUSATE SODIUM 100 MG CAP PO SCH ×2 (08:24→20:31)
[2017-01-05] MEDS: FAMOTIDINE 20 MG TAB PO SCH ×2 (08:24→20:32)
[2017-01-05] MEDS: LOSARTAN 50 MG TAB PO SCH (08:24)
[2017-01-05] MEDS: HYDROCHLOROTHIAZIDE 25 MG TAB PO SCH (08:28)
--- NOTE | 2017-01-05 16:08 | CONS ---
DATE OF ADMISSION: 01/03/2017 DATE OF CONSULTATION: 01/05/2017 TYPE OF CONSULTATION: Infectious Disease. REASON FOR CONSULTATION: Antibiotic management. HISTORY OF PRESENT ILLNESS: [place] Henry is a 71-year-old male who comes in with complaints of le ft knee pain. His past problems include: 1. Hypertension. 2. Adult-onset diabetes mellitus. 3. Dyslipidemia. 4. Recent hospitalization for left lower extremity cellulitis. 5. Status post appendectomy. The patient was recently in [place] late last year and was managed for left lower extremity celluliti s with inpatient hospitalization and IV antibiotics. He was discharged on oral medication and seeme d to get better, but developed knee pain over the last 3 weeks associated with warmth and swelling. He does not recall any trauma to the left lower extremity and it affects only his left knee. The p ain has continued to worsen and he came to the emergency room. In the emergency room, his white cou nt was 10.4, H and H 11.5 and 36.8, platelet count 266,000. On the , today, his white count is 8 .2, BUN and creatinine are 9/0.73. MICROBIOLOGY: Blood cultures are negative. Synovial fluid and wound culture is negative. HOSPITAL COURSE: The patient was seen by Dr. Viki Cmapos today. IMPRESSION: Septic arthritis of the left knee with osteomyelitis involving the proximal portion of the left tibia and possibly involvement of the patella. He requested additional diagnostic studies including white cell scan and repeat MRI with IV contrast. Because of the possibility of amputatio n, he may need a transfer to a major medical center for second opinion at a higher level of care. T he patient was placed on vancomycin and ceftriaxone. PAST MEDICAL HISTORY: Operations as outlined. FAMILY HISTORY: Noncontributory. SOCIAL HISTORY: He does not smoke, drink or abuse drugs. ALLERGIES: NONE TO PENICILLIN, SULFA OR FOODS. MEDICATIONS: Per chart. REVIEW OF SYSTEMS: As per HPI. PHYSICAL EXAMINATION: GENERAL: The patient is an elderly male who is alert, responsive, in no acute distress. VITAL SIGNS: Stable. He is afebrile. SKIN: Without generalized rash. HEENT: Within normal limits. NECK: Supple. LYMPH NODES: None palpable. CHEST: Decreased breath sounds at the bases. HEART: Without murmur or gallop. ABDOMEN: Soft, nontender without organosplenomegaly or masses. EXTREMITIES: Tenderness and swelling noted in the left knee with range of motion. Swelling extende d. He has an effusion in the left knee which is mild. There is a cystic swelling over the anterome dial aspect of the proximal legs, starting at the level of the tibial plateau and extending downward to the distal portion of diaphysis. There was mild warmth around the left knee with tenderness and increased warmth in the proximal portion of the left leg. RECTAL AND GENITAL: Deferred. NEUROLOGIC: No focal neurological abnormalities. Of note, patient had an MRI of the knee on the 7t h, which showed osteomyelitis of the proximal tibia extending from the tibial plateau to the proxima l diaphysis. Complex irregular fluid collection, most likely represents an abscess. This is continu ous with the periosteum of the tibia in the region of osteomyelitis. IV contrast enhanced MRI exami nation would be of further use to evaluate the abscess, moderate left knee joint effusion, tear of t he posterior horn of the medial meniscus and intermediate grade ACL injury. In summation, the patie nt has significant osteomyelitis. He is on vancomycin and ceftriaxone. He will need drainage of th e abscess and at least 6 to 8 weeks of IV antibiotics and hopefully, this will be effective. Obmary garciay his leg is at risk of amputation. I will dictate my findings to hospitalist and to Dr. Viki aviles Dictated By: LULY BRANHAM MD, JD/BRANDON Conf#: [id number] DID#: [id number]
--- NOTE | 2017-01-05 16:17 | RADRPT ---
PROCEDURE: MRI OF THE LEFT KNEE WITH CONTRAST CLINICAL INDICATION: Left knee pain and swelling, concern for infection TECHNIQUE: MRI images of the left knee were obtained utilizing in multiple planes using multiple p ulse sequences. Images were obtained before after the injection of IV contrast. 10 cc of Magnevist IV contrast was used. Images were interpreted on a high-resolution PACS system. COMPARISON: Radiographs of the left knee January 03, 2017 and MRI of the right knee and right tibia / fibula January 03, 2017 FINDINGS: The field of view of this study includes the proximal tibia and a small portion of the distal femora l condyles. There is redemonstration of marked abnormal marrow signal involving the proximal 7 cm of the tibia ( coronal 14) which could reflect osteomyelitis and possibly associated bone infarct. There is also m ilder peripheral abnormal bone marrow signal seen at the medial and lateral femoral condyles that co uld also reflect reactive edema versus osteomyelitis. There is a large peripherally enhancing fluid collection over the proximal tibia measuring 8.0 x 2.0 by 6.0 cm with septations and debris that likely represents an abscess. Some of this fluid appears to be undermining the distal patellar tendon insertion. Additionally, there is a peripherally enhancing fluid collection that is involving the medial gastr ocnemius and soleus muscles and measures greater than 9 cm in superoinferior dimension, 4 cm in ante roposterior dimension, and 2 cm in mediolateral dimension and extends beyond the field of view and a lso likely represents intramuscular abscess. Limited intra-articular evaluation demonstrates high-grade chondral loss throughout the medial femor otibial compartment with inner margin tearing of the body of the medial meniscus. Intra-articular a ssessment is limited due to the field of view. There is a moderate sized knee joint effusion with s ynovitis, possibly septic arthritis. IMPRESSION: 1. Redemonstration of extensive abnormal bone marrow signal involving the proximal 7 cm of the tibia concerning for osteomyelitis in this clinical cassette scenario, possibly with superimposed bone in farct. Milder abnormal marrow signal at the periphery of the medial and lateral femoral condyles al so could reflect early osteomyelitis versus reactive osteitis. 2. Large complex peripheral enhancing fluid collection/abscess measuring 8 x 6 x 2 cm overlying the proximal tibial shaft and partially undermining the distal patellar tendon insertion. 3. Incompletely assessed complex periphery enhancing fluid collection within the medial gastrocnemiu s and soleus muscles also probably reflects an abscess . This measures greater than 9 x 4 x 2 cm an d extends beyond the inferior field of view. 4. Moderate sized knee joint effusion with synovitis, possibly septic arthritis, to be correlated wi th fluid sampling. RPTAT: UU .Rohan Villalba MD, MD Date Time Electronically viewed and signed by .Rohan Villalba MD, MD on 01/05/2017 16:17 .K/
[2017-01-05] MEDS: VANCOMYCIN 1.5 GM in SOD CHLORIDE 0.9% 250 ML IVPB SCH (17:09)
--- NOTE | 2017-01-05 17:37 | PN ---
Date/Time of Note Date/Time of Note DATE: 01/05/17 TIME: 17:25 Assessment/Plan VTE Prophylaxis VTE Prophylaxis Intervention: heparin Lines/Catheters IV Catheter Type (from Nrsg): Peripheral IV Urinary Cath still in place: No Assessment/Plan Assessment/Plan 1. Left knee and lower extremity infection with proximal tibia osteomyelitis and abscess formation, antibiotics(rocephin/vanco), follow up with Dr. Campos 2. Hypertension, controlled. 3. Diabetes mellitus type 2. lantus/ISS 8. Dyslipidemia. 9. Chronic asthma Subjective 24 Hr Interval Summary Free Text/Dictation left knee pain Exam/Review of Systems Vital Signs Vitals Vital Signs Date Time Temp Pulse Resp B/P Pulse Ox O2 Delivery O2 Flow Rate FiO2 01/05/17 07:53 97.5 67 18 149/67 94 01/03/17 22:32 Room Air Intake and Output 01/04/17 01/04/17 01/05/17 15:00 23:00 07:00 Intake Total 250 ml 3580 ml 1975 ml Output Total 2100 ml 2100 ml Balance 250 ml 1480 ml -125 ml Exam Constitutional: alert, oriented, well developed Psych: nl mood/affect, no complaints Head: atraumatic, normocephalic Eyes: EOMI, PERRL, nl conjunctiva, nl lids, nl sclera ENMT: nl external ears & nose, nl lips & teeth, nl nasal mucosa & septum Neck: non-tender, supple Respiratory: clear to auscultation, normal air movement, No congested cough, No crackles/rales, No diminished breath sounds, No intercostal retraction, No labored breathing, No other, No respirations, No tactile fremitus, No wheezing Cardiovascular: nl pulses, regular rate and rhythm, No S3, No S4, No bruits, No diastolic murmur, No edema, No gallop, No irregular rhythm, No jugular venous distention (JVD), No murmurs/extra sounds, No other, No rub, No systolic murmur Gastrointestinal: nl liver, spleen, non-tender, soft, No ascites, No bowel sounds, No distended, No firm, No hepatomegaly, No mass , No other, No rebound or guarding, No splenomegaly, No surgical scars, No tender Extremities: normal pulses, other (left knee swelling, warm) Neurological: RACK WASHER II-XII intact, nl mental status, nl speech, nl strength Results Result Diagram: 01/05/17 0308 01/05/17 0308 Results 24 hrs Laboratory Tests Test 01/04/17 20:10 01/05/17 03:08 01/05/17 07:49 01/05/17 11:31 Bedside Glucose 130 161 218 Anion Gap 12 Basophils # 0.0 Basophils % 0.4 Blood Urea Nitrogen 9 Calcium Level 8.0 L Carbon Dioxide Level 33 H Chloride Level 100 Creatinine 0.73 Eosinophils # 0.3 Eosinophils % 3.3 Glucose Level 162 Hematocrit 32.2 L Hemoglobin 9.9 L Lymphocytes # 0.9 Lymphocytes % 11.3 L Mean Corpuscular Hemoglobin 27.2 L Mean Corpuscular Hemoglobin Concent 30.7 L Mean Corpuscular Volume 88.5 Mean Platelet Volume 10.8 H Monocytes # 0.7 Monocytes % 9.1 Neutrophils # 6.1 Neutrophils % 75.2 Nucleated Red Blood Cells # 0.0 Nucleated Red Blood Cells % 0.0 Platelet Count 252 Potassium Level 4.4 Red Blood Count 3.64 L Red Cell Distribution Width 14.1 Sodium Level 141 Vancomycin Level Trough 11.1 White Blood Count 8.2 Medications Medications Current Medications Ceftriaxone Sodium (Rocephin) 50 ml @ 100 mls/hr Q24H IVPB Last administered on 01/04/17 20:12; Admin Dose 100 MLS/HR; Start 01/03/17 at 19:30 Docusate Sodium (Colace) 100 mg BID PO Last administered on 01/05/17 08:24; Admin Dose 100 MG; Start 01/03/17 at 21:00 Acetaminophen/ Hydrocodone Bitart ([place] (5/325)) 1 tab Q6H PRN PO pain Last administered on 01/05/17 14:53; Admin Dose 1 TAB; Start 01/03/17 at 19:30 Famotidine 20 mg 20 mg BID PO Last administered on 01/05/17 08:24; Admin Dose 20 MG; Start 01/03/17 at 21:00 Sodium Chloride (NS) 1,000 ml @ 125 mls/hr Q8H IV Last administered on 17:17; Admin Dose 125 MLS/HR; Start 01/03/17 at 19:30 Miscellaneous Information 1 ea NOTE XX ; Start 01/03/17 at 19:30 Glucose (Glutose) 15 gm Q15M PRN PO DECREASED GLUCOSE; Start 01/03/17 at 19:30 Glucose (Glutose) 22.5 gm Q15M PRN PO DECREASED GLUCOSE; Start 01/03/17 at 19:30 Dextrose (D50w Syringe) 25 ml Q15M PRN IV DECREASED GLUCOSE; Start 01/03/17 at 19:30 Dextrose (D50w Syringe) 50 ml Q15M PRN IV DECREASED GLUCOSE; Start 01/03/17 at 19:30 Glucagon (Glucagen) 1 mg Q15M PRN IM DECREASED GLUCOSE; Start 01/03/17 at 19:30 Glucose (Glutose) 15 gm Q15M PRN BUCCAL DECREASED GLUCOSE; Start 01/03/17 at 19: 30 Hydrochlorothiazide (Hydrochlorothiazide) 25 mg DAILY PO Last administered on 08:28; Admin Dose 25 MG; Start 01/04/17 at 09:00 Losartan Potassium (Cozaar) 100 mg DAILY PO Last administered on 01/05/17 08:24 ; Admin Dose 100 MG; Start 01/04/17 at 09:00 Al Hydrox/Mg Hydrox/Simethicone (Mag-Al Plus) 30 ml Q4H PRN PO GASTROINTESTINAL UPSET Last administered on 01/05/17 00:39; Admin Dose 30 ML; Start 01/05/17 at 00:30 Bisacodyl (Dulcolax Supp) 10 mg DAILY PRN RI CONSTIPATION Last administered on 01/05/17 00:39; Admin Dose 10 MG; Start 01/05/17 at 00:30 Sodium Biphosphate/ Sodium Phosphate 133 ml 133 ml DAILY PRN RI CONSTIPATION; Start 01/05/17 at 00:30 Vancomycin HCl/ Sodium Chloride (Vancocin/NS) 250 ml @ 83.333 mls/ hr Q12H IVPB Last administered on 01/05/17 17:09; Admin Dose 83.333 MLS/HR; Start at 16:00 EVELINA LUNDBERG MD Jan 05, 2017 17:36
[2017-01-05] MEDS ORDERED: ONDANSETRON 4 MG INJ IV PRN (18:00)
[2017-01-05] MEDS: HYDROmorphONE 1 MG/ML SYG IV PRN (18:00)
[2017-01-05] MEDS: CEFTRIAXONE 2 GM/50 ML (PMX) 50 ML IVPB SCH (19:50)
[2017-01-05 19:52] VITALS: BP 140/54; RESP 20
[2017-01-05] MEDS: HEPARIN 5,000 UNIT/0.5 ML SYG SC SCH (20:36)
[2017-01-06] MEDS: SOD CHLORIDE 0.9% 1,000 ML IV SCH ×4 (03:30→18:29)
[2017-01-06] MEDS: VANCOMYCIN 1.5 GM in SOD CHLORIDE 0.9% 250 ML IVPB SCH ×2 (04:04→16:08)
[2017-01-06] MEDS: HYDROmorphONE 1 MG/ML SYG IV PRN (04:07)
[2017-01-06] MEDS: INSULIN ASPART [NOVOLOG] 3 ML PEN SC SCH ×4 (08:00→21:00)
[2017-01-06 08:08] VITALS: BP 151/69; RESP 18
[2017-01-06] MEDS: LOSARTAN 50 MG TAB PO SCH (08:26)
[2017-01-06] MEDS: FAMOTIDINE 20 MG TAB PO SCH ×2 (08:26→21:28)
[2017-01-06] MEDS: DOCUSATE SODIUM 100 MG CAP PO SCH ×2 (08:27→21:28)
[2017-01-06] MEDS: HEPARIN 5,000 UNIT/0.5 ML SYG SC SCH ×2 (08:27→21:32)
[2017-01-06] MEDS: HYDROCHLOROTHIAZIDE 25 MG TAB PO SCH (08:27)
[2017-01-06 10:37] LABS: ADD SCAN DIFF NO
[2017-01-06 10:46] LABS: BASOPHILS % 0.6 % (0.0-2.0); EOSINOPHILS # 0.2 10^3/ul (0.0-0.5); EOSINOPHILS % 2.7 % (0.0-7.0); HEMATOCRIT 32.1 % (42.0-52.0); HEMOGLOBIN 10.3 g/dl (14.0-18.0); LYMPHOCYTES # 0.9 10^3/ul (0.8-2.9); LYMPHOCYTES % 13.2 % (15.0-51.0); MEAN CORPUSCULAR HEMOGLOBIN 28.1 pg (29.0-33.0); MEAN CORPUSCULAR HGB CONC 32.1 g/dl (32.0-37.0); MEAN CORPUSCULAR VOLUME 87.7 fl (82.0-101.0); MONOCYTE # 0.6 10^3/ul (0.3-0.9); MONOCYTES % 8.8 % (0.0-11.0); NEUTROPHILS % 74.1 % (39.0-77.0); PLATELET COUNT 244 10^3/UL (140-415); RED BLOOD COUNT 3.66 10^6/ul (4.70-6.10); RED CELL DISTRIBUTION WIDTH 13.9 % (11.5-14.5); WHITE BLOOD COUNT 6.7 10^3/ul (4.8-10.8)
[2017-01-06 10:58] LABS: POTASSIUM 4.3 mmol/L (3.5-5.1)
[2017-01-06 11:01] LABS: CREATININE 0.61 mg/dl (0.61-1.24)
[2017-01-06 11:02] LABS: CALCIUM 8.2 mg/dl (8.4-10.2)
--- NOTE | 2017-01-06 12:42 | PN ---
DATE: 01/06/2017 SUBJECTIVE: No events overnight. The patient is alert, looks comfortable, feels good. No fevers. No nausea, vomiting, diarrhea. LABORATORY DATA: WBC 6.7, no shift, no bands. BUN 7, creatinine 0.61. ANTIMICROBIALS: The patient is on: 1. IV vancomycin. 2. Rocephin. MICROBIOLOGY: Blood cultures had been negative. PHYSICAL EXAMINATION: GENERAL: This is well-developed, elderly man who is alert, in no distress. HEENT: Head atraumatic, normocephalic. Sclerae anicteric. Buccal mucosa pink. NECK: Supple. CHEST: Rise symmetrical. Breath sounds clear. HEART: S1, S2. ABDOMEN: Soft, bowel tones present. EXTREMITIES: Left lower extremity erythema below knee and swelling. ASSESSMENT: 1. Left knee osteomyelitis with septic arthritis. 2. Diabetes. 3. Hypertension. PLAN: The patient remains stable. He is being seen by Dr. Campos in ortho consultation. He is on bro ad spectrum antibiotics, which we will continue. Patient will require 6 weeks IV antibiotics and ma y need surgical intervention. We will defer to ortho. Dictated By: MAGGI JONES COMPLIANCE PROGRAM MANAGER for LULY GREEN/BRANDON Conf#: [id number] DID#: [id number]
--- NOTE | 2017-01-06 15:42 | PN ---
Date/Time of Note Date/Time of Note DATE: 01/06/17 TIME: 15:30 Assessment/Plan VTE Prophylaxis VTE Prophylaxis Intervention: heparin Lines/Catheters IV Catheter Type (from Nrs): Peripheral IV Urinary Cath still in place: No Assessment/Plan Assessment/Plan 1. Left knee and lower extremity infection with abscess formation and proximal tibia osteomyelitis , antibiotics(rocephin/vanco), follow up with Dr. Campos for further treatment 2. Hypertension, controlled. 3. Diabetes mellitus type 2. ISS, will start metformin(he got iv contrast 2016) 8. Dyslipidemia. 9. Chronic asthma 10. Chronic normocytic anemia, stable 11. DVT prophylaxis: heparin Subjective 24 Hr Interval Summary Free Text/Dictation afebrile. better but still has left knee/leg swelling and pain Exam/Review of Systems Vital Signs Vitals Vital Signs Date Time Temp Pulse Resp B/P Pulse Ox O2 Delivery O2 Flow Rate FiO2 01/06/17 08:08 98.1 70 18 151/69 94 01/03/17 22:32 Room Air Intake and Output 01/05/17 01/05/17 01/06/17 15:00 23:00 07:00 Intake Total 1125 ml 1552 ml 1450 ml Output Total 1400 ml 750 ml Balance 1125 ml 152 ml 700 ml Exam Constitutional: alert, oriented, well developed Psych: nl mood/affect, no complaints Head: atraumatic, normocephalic Eyes: EOMI, PERRL, nl conjunctiva, nl lids ENMT: nl external ears & nose, nl lips & teeth, nl nasal mucosa & septum Neck: non-tender, supple Respiratory: clear to auscultation, normal air movement, No congested cough, No crackles/rales, No diminished breath sounds, No intercostal retraction, No labored breathing, No other, No respirations, No tactile fremitus, No wheezing Cardiovascular: nl pulses, regular rate and rhythm, No S3, No S4, No bruits, No diastolic murmur, No edema, No gallop, No irregular rhythm, No jugular venous distention (JVD), No murmurs/extra sounds, No other, No rub, No systolic murmur Gastrointestinal: nl liver, spleen, non-tender, soft, No ascites, No bowel sounds, No distended, No firm, No hepatomegaly, No mass , No other, No rebound or guarding, No splenomegaly, No surgical scars, No tender Extremities: normal pulses, other (left knee and lower extremity redness, swelling, warm with tenderness) Neurological: [employer]EL[employer] II-XII intact, nl mental status, nl speech, nl strength Results Result Diagram: 01/06/17 1000 01/06/17 1000 Results 24 hrs Laboratory Tests Test 01/05/17 17:09 01/05/17 20:40 01/06/17 07:50 01/06/17 10:00 Bedside Glucose 151 163 138 Anion Gap 10 Basophils # 0.0 Basophils % 0.6 Blood Urea Nitrogen 7 Calcium Level 8.2 L Carbon Dioxide Level 33 H Chloride Level 99 Creatinine 0.61 Eosinophils # 0.2 Eosinophils % 2.7 Glucose Level 172 Hematocrit 32.1 L Hemoglobin 10.3 L Lymphocytes # 0.9 Lymphocytes % 13.2 L Mean Corpuscular Hemoglobin 28.1 L Mean Corpuscular Hemoglobin Concent 32.1 Mean Corpuscular Volume 87.7 Mean Platelet Volume 11.0 H Monocytes # 0.6 Monocytes % 8.8 Neutrophils # 5.0 Neutrophils % 74.1 Nucleated Red Blood Cells # 0.0 Nucleated Red Blood Cells % 0.0 Platelet Count 244 Potassium Level 4.3 Red Blood Count 3.66 L Red Cell Distribution Width 13.9 Sodium Level 138 White Blood Count 6.7 Test 01/06/17 11:40 Bedside Glucose 158 Medications Medications Current Medications Ceftriaxone Sodium (Rocephin) 50 ml @ 100 mls/hr Q24H IVPB Last administered on 01/05/17 19:50; Admin Dose 100 MLS/HR; Start 01/03/17 at 19:30 Docusate Sodium (Colace) 100 mg BID PO Last administered on 01/06/17 08:27; Admin Dose 100 MG; Start 01/03/17 at 21:00 Acetaminophen/ Hydrocodone Bitart ([place] (5/325)) 1 tab Q6H PRN PO pain Last administered on 01/05/17 14:53; Admin Dose 1 TAB; Start 01/03/17 at 19:30 Famotidine 20 mg 20 mg BID PO Last administered on 01/06/17 08:26; Admin Dose 20 MG; Start 01/03/17 at 21:00 Sodium Chloride (NS) 1,000 ml @ 125 mls/hr Q8H IV Last administered on 08:29; Admin Dose 125 MLS/HR; Start 01/03/17 at 19:30 Miscellaneous Information 1 ea NOTE XX ; Start 01/03/17 at 19:30 Glucose (Glutose) 15 gm Q15M PRN PO DECREASED GLUCOSE; Start 01/03/17 at 19:30 Glucose (Glutose) 22.5 gm Q15M PRN PO DECREASED GLUCOSE; Start 01/03/17 at 19:30 Dextrose (D50w Syringe) 25 ml Q15M PRN IV DECREASED GLUCOSE; Start 01/03/17 at 19:30 Dextrose (D50w Syringe) 50 ml Q15M PRN IV DECREASED GLUCOSE; Start 01/03/17 at 19:30 Glucagon (Glucagen) 1 mg Q15M PRN IM DECREASED GLUCOSE; Start 01/03/17 at 19:30 Glucose (Glutose) 15 gm Q15M PRN BUCCAL DECREASED GLUCOSE; Start 01/03/17 at 19: 30 Hydrochlorothiazide (Hydrochlorothiazide) 25 mg DAILY PO Last administered on 08:27; Admin Dose 25 MG; Start 01/04/17 at 09:00 Losartan Potassium (Cozaar) 100 mg DAILY PO Last administered on 01/06/17 08: 26; Admin Dose 100 MG; Start 01/04/17 at 09:00 Al Hydrox/Mg Hydrox/Simethicone (Mag-Al Plus) 30 ml Q4H PRN PO GASTROINTESTINAL UPSET Last administered on 01/05/17 21:17; Admin Dose 30 ML; Start 01/05/17 at 00:30 Bisacodyl (Dulcolax Supp) 10 mg DAILY PRN [place] CONSTIPATION Last administered on 01/05/17 00:39; Admin Dose 10 MG; Start 01/05/17 at 00:30 Sodium Biphosphate/ Sodium Phosphate 133 ml 133 ml DAILY PRN [place] CONSTIPATION; Start 01/05/17 at 00:30 Vancomycin HCl/ Sodium Chloride (Vancocin/NS) 250 ml @ 83.333 mls/ hr Q12H IVPB Last administered on 01/06/17 04:04; Admin Dose 83.333 MLS/HR; Start 01/05 at 16:00 Heparin Sodium (Porcine) (Heparin (5000 Units/0.5 ml)) 5,000 unit BID SC Last administered on 01/06/17 08:27; Admin Dose 5,000 UNIT; Start 01/05/17 at 21:00 Hydromorphone HCl (Dilaudid) 1 mg Q4H PRN IV PAIN Last administered on 04:07; Admin Dose 1 MG; Start 01/05/17 at 18:00 Ondansetron HCl (Zofran Inj) 4 mg Q4H PRN IV NAUSEA AND/OR VOMITING; Start 01/05 at 18:00 EVELINA LUNDBERG MD Jan 06, 2017 15:41
[2017-01-06] MEDS: HYDROCODONE/APAP (5/325) TAB PO PRN (18:31)
--- NOTE | 2017-01-06 20:16 | PN ---
DATE: 01/06/2017 SUBJECTIVE: Afebrile and no leukocytosis. Additional radiologic study, namely MRI scan with the IV contrast, as recommended by radiologist, was obtained and it clearly shows a presence of scattered osteomyelitic changes involving the proximal diaphysis of the left tibia, which seems to be communic ating with the large abscess in the anteromedial aspect of the left thigh, along with the extension into the calf muscles. There also is evidence of involvement of the knee joint itself along with th e possible involvement of the lower tip of the left patella. WBC scan could not be done yet, because the injectables were not available. Because of the severity of the involvement, including extensive osteomyelitis involving the proximal tibia and knee joint itself and part of the patella, the only treatment available in this facility would be low [id number] amputation. Therefore, after discussion with the patient himself, who i s aware of his condition, it may be beneficial to be seen by an orthopedic surgeon who has a special expertise on unusually extensive osteomyelitis and orthopedic infections, and a transfer to the [facility] for higher level of care, including more aggressive and u p-to-date treatment including possible limb salvage procedure and we will try to transfer this patie nt to [facility] in [place], where the orthopedic surgeon specializing in the orthoped ic infection and osteomyelitis, namely Dieter Noe MD can be available. Our recommendation was communicated with the patient and the patient is in full agreement. Dictated By: ELIZABETH ERNANDEZ/NTS Conf#: [id number] DID#: [id number]
[2017-01-06] MEDS: CEFTRIAXONE 2 GM/50 ML (PMX) 50 ML IVPB SCH (21:27)
[2017-01-06 21:35] VITALS: BP 158/70; RESP 20
[2017-01-07] MEDS: HYDROmorphONE 1 MG/ML SYG IV PRN ×3 (02:22→23:46)
[2017-01-07] MEDS: SOD CHLORIDE 0.9% 1,000 ML IV SCH ×3 (04:04→15:03)
[2017-01-07] MEDS: VANCOMYCIN 1.5 GM in SOD CHLORIDE 0.9% 250 ML IVPB SCH ×2 (04:04→16:05)
[2017-01-07] MEDS: INSULIN ASPART [NOVOLOG] 3 ML PEN SC SCH ×4 (08:00→20:36)
[2017-01-07 08:18] VITALS: BP 157/70; RESP 20
[2017-01-07] MEDS: DOCUSATE SODIUM 100 MG CAP PO SCH ×2 (09:22→20:36)
[2017-01-07] MEDS: FAMOTIDINE 20 MG TAB PO SCH ×2 (09:22→20:36)
[2017-01-07] MEDS: LOSARTAN 50 MG TAB PO SCH (09:22)
[2017-01-07] MEDS: HYDROCHLOROTHIAZIDE 25 MG TAB PO SCH (09:22)
[2017-01-07] MEDS: HEPARIN 5,000 UNIT/0.5 ML SYG SC SCH ×2 (09:25→20:38)
[2017-01-07] MEDS: HYDROCODONE/APAP (5/325) TAB PO PRN (09:28)
[2017-01-07] MEDS: AL HYDROX/MG HYDROX/SIMETH 30 ML CUP PO PRN (11:41)
--- NOTE | 2017-01-07 12:05 | PN ---
Date/Time of Note Date/Time of Note DATE: 01/07/17 TIME: 12:03 Assessment/Plan VTE Prophylaxis VTE Prophylaxis Intervention: other Lines/Catheters IV [facility] Type [facility]from [facility] Peripheral IV Urinary Cath still in place: No Assessment/Plan Problems: (1) Diabetes mellitus type 2 in obese Status: Chronic Comment: He has adequate control with his current regimen. (2) Septic arthritis of knee, left Status: Acute Comment: Please see the dictation from Dr. Campos the orthopedic surgeon. This is extremely grave situation and the patient reports he is not willing to undergo any type of amputation procedure. We are waiting for the response back from the [facility] for evaluation of this will continue him on aggressive antibiotic therapy in the meantime Qualifiers: Septic arthritis organism: due to unspecified organism Qualified Code: M00.9 - Pyogenic arthritis of left knee joint, due to unspecified organism Subjective 24 Hr Interval Summary Constitutional: no complaints (Denies fever chills or sweats) Respiratory: no complaints Cardiovascular: no complaints Gastrointestinal: no complaints Musculoskeletal: other Exam/Review of Systems Vital Signs Vitals Vital Signs Date Time Temp Pulse Resp B/P Pulse Ox O2 Delivery O2 Flow Rate FiO2 01/07/17 08:18 98.0 76 20 157/70 92 01/03/17 22:32 Room Air Intake and Output 01/06/17 01/06/17 01/07/17 15:00 23:00 07:00 Intake Total 340 ml 2890 ml 1520 ml Output Total 1900 ml 1400 ml Balance 340 ml 990 ml 120 ml Exam Constitutional: alert, oriented Neck: non-tender, supple Respiratory: clear to auscultation, normal air movement Cardiovascular: nl pulses, regular rate and rhythm Extremities: other (Left lower extremity swollen especially in the area of the knee.) Results Result Diagram: 01/06/17 1000 01/06/17 1000 Results 24 hrs Laboratory Tests Test 01/06/17 16:30 01/06/17 21:29 01/07/17 07:48 01/07/17 11:40 Bedside Glucose 152 133 128 181 Medications Medications Current Medications Ceftriaxone Sodium (Rocephin) 50 ml @ 100 mls/hr Q24H IVPB Last administered on 01/06/17t 21:27; Admin Dose 100 MLS/HR; Start 01/03/17 at 19:30 Docusate Sodium (Colace) 100 mg BID PO Last administered on 01/07/17 09:22; Admin Dose 100 MG; Start 01/03/17 at 21:00 Acetaminophen/ Hydrocodone Bitart ([place] (5/325)) 1 tab Q6H PRN PO pain Last administered on 01/07/17 09:28; Admin Dose 1 TAB; Start 01/03/17 at 19:30 Famotidine 20 mg 20 mg BID PO Last administered on 01/07/17 09:22; Admin Dose 20 MG; Start 01/03/17 at 21:00 Sodium Chloride (NS) 1,000 ml @ 125 mls/hr Q8H IV Last administered on 04:04; Admin Dose 125 MLS/HR; Start 01/03/17 at 19:30 Miscellaneous Information 1 ea NOTE XX ; Start 01/03/17 at 19:30 Glucose (Glutose) 15 gm Q15M PRN PO DECREASED GLUCOSE; Start 01/03/17 at 19:30 Glucose (Glutose) 22.5 gm Q15M PRN PO DECREASED GLUCOSE; Start 01/03/17 at 19:30 Dextrose (D50w Syringe) 25 ml Q15M PRN IV DECREASED GLUCOSE; Start 01/03/17 at 19:30 Dextrose (D50w Syringe) 50 ml Q15M PRN IV DECREASED GLUCOSE; Start 01/03/17 at 19:30 Glucagon (Glucagen) 1 mg Q15M PRN IM DECREASED GLUCOSE; Start 01/03/17 at 19:30 Glucose (Glutose) 15 gm Q15M PRN BUCCAL DECREASED GLUCOSE; Start 01/03/17 at 19: 30 Hydrochlorothiazide (Hydrochlorothiazide) 25 mg DAILY PO Last administered on 09:22; Admin Dose 25 MG; Start 01/04/17 at 09:00 Losartan Potassium (Cozaar) 100 mg DAILY PO Last administered on 01/07/17 09: 22; Admin Dose 100 MG; Start 01/04/17 at 09:00 Al Hydrox/Mg Hydrox/Simethicone (Mag-Al Plus) 30 ml Q4H PRN PO GASTROINTESTINAL UPSET Last administered on 01/07/17 11:41; Admin Dose 30 ML; Start 01/05/17 at 00:30 Bisacodyl (Dulcolax Supp) 10 mg DAILY PRN [place] CONSTIPATION Last administered on 01/05/17 00:39; Admin Dose 10 MG; Start 01/05/17 at 00:30 Sodium Biphosphate/ Sodium Phosphate 133 ml 133 ml DAILY PRN [place] CONSTIPATION; Start 01/05/17 at 00:30 Vancomycin HCl/ Sodium Chloride (Vancocin/NS) 250 ml @ 83.333 mls/ hr Q12H IVPB Last administered on 01/07/17 04:04; Admin Dose 83.333 MLS/HR; Start 01/05 at 16:00 Heparin Sodium (Porcine) (Heparin (5000 Units/0.5 ml)) 5,000 unit BID SC Last administered on 01/07/17 09:25; Admin Dose 5,000 UNIT; Start 01/05/17 at 21:00 Hydromorphone HCl (Dilaudid) 1 mg Q4H PRN IV PAIN Last administered on 02:22; Admin Dose 1 MG; Start 01/05/17 at 18:00 Ondansetron HCl (Zofran Inj) 4 mg Q4H PRN IV NAUSEA AND/OR VOMITING; Start 01/05 at 18:00 KAYLYN GUY MD Jan 07, 2017 12:05
--- NOTE | 2017-01-07 17:15 | CONS ---
Date/Time of Note Date/Time of Note DATE: 01/07/17 TIME: 17:15 Assessment/Plan Assessment/Plan Chief Complaint/Hosp Course ID PROGRESS NOTE TOTAL ABX DAY => Vanco IV + Ceftriaxone 24H INTERVAL SUMMARY * Awake, no new issues or complaints, no fevers, VSS, WBC & renal fx normal ESR 65 * MRI 01/05/17: IMPRESSION: * 1. Redemonstration of extensive abnormal bone marrow signal involving the proximal 7 cm of the tibia concerning for osteomyelitis in this clinical cassette scenario, possibly with superimposed bone infarct. Milder abnormal marrow signal at the periphery of the medial and lateral femoral condyles also could reflect early osteomyelitis versus reactive osteitis. * 2. Large complex peripheral enhancing fluid collection/abscess measuring 8 x 6 x 2 cm overlying the proximal tibial shaft and partially undermining the distal patellar tendon insertion. * 3. Incompletely assessed complex periphery enhancing fluid collection within the medial gastrocnemius and soleus muscles also probably reflects an abscess . This measures greater than 9 x 4 x 2 cm and extends beyond the inferior field of view. * 4. Moderate sized knee joint effusion with synovitis, possibly septic arthritis, to be correlated with fluid sampling. PHYSICAL EXAMINATION: GENERAL: yo lethargic HEENT: Unremarkable NECK: Supple, full ROM CHEST: Equal chest rise bilaterally, without dyspnea on observation HEART: Pulse RRR ABDOMEN: Soft EXTREMITIES: Warm, LLEXT edema/erythema SKIN: See hard chart skin assessment ID ASSESSMENT: 71 yo M admit with: 1. Left knee septic arthritis womplex prox pre-tibial subpatellar fluid collection/absess with osteomyelitis 2. Diabetes. 3. Hypertension. INVASIVES: PIV ABX ALLERGY: KNDA CURRENT ABX: => Vanco IV + Ceftriaxone ID RECOMMENDATIONS: 1. Continue current ABX => CM to arrange TNS to /[facility] 2. Per Dr. Beth malone note: Pt needs AKA and transfer to high level of specialty ortho surgical care: transfer this patient to [facility] in [place], where the orthopedic surgeon specializing in the orthopedic infection and osteomyelitis, namely Dieter Noe MD . Problems: Consultation Date/Type/Reason Admit Date/Time Jan 03, 2017 at 20:43 Initial Consult Date Exam/Review of Systems Vital Signs Vitals Vital Signs Date Time Temp Pulse Resp B/P Pulse Ox O2 Delivery O2 Flow Rate FiO2 01/07/17 08:18 98.0 76 20 157/70 92 01/03/17 22:32 Room Air Intake and Output 01/06/17 01/06/17 01/07/17 15:00 23:00 07:00 Intake Total 340 ml 2890 ml 1520 ml Output Total 1900 ml 1400 ml Balance 340 ml 990 ml 120 ml Results Result Diagram: 01/06/17 1000 01/06/17 1000 Results 24 hrs Laboratory Tests Test 01/06/17 21:29 01/07/17 07:48 01/07/17 11:40 01/07/17 15:10 Bedside Glucose 133 128 181 Vancomycin Level Trough 16.6 Test 01/07/17 16:43 Bedside Glucose 111 Medications Medications Current Medications Ceftriaxone Sodium (Rocephin) 50 ml @ 100 mls/hr Q24H IVPB Last administered on 01/06/17 21:27; Admin Dose 100 MLS/HR; Start 01/03/17 at 19:30 Docusate Sodium (Colace) 100 mg BID PO Last administered on 01/07/17 09:22; Admin Dose 100 MG; Start 01/03/17 at 21:00 Acetaminophen/ Hydrocodone Bitart ([place] (5/325)) 1 tab Q6H PRN PO pain Last administered on 01/07/17 09:28; Admin Dose 1 TAB; Start 01/03/17 at 19:30 Famotidine 20 mg 20 mg BID PO Last administered on 01/07/17 09:22; Admin Dose 20 MG; Start 01/03/17 at 21:00 Sodium Chloride (NS) 1,000 ml @ 125 mls/hr Q8H IV Last administered on 15:03; Admin Dose 125 MLS/HR; Start 01/03/17 at 19:30 Miscellaneous Information 1 ea NOTE XX ; Start 01/03/17 at 19:30 Glucose (Glutose) 15 gm Q15M PRN PO DECREASED GLUCOSE; Start 01/03/17 at 19:30 Glucose (Glutose) 22.5 gm Q15M PRN PO DECREASED GLUCOSE; Start 01/03/17 at 19:30 Dextrose (D50w Syringe) 25 ml Q15M PRN IV DECREASED GLUCOSE; Start 01/03/17 at 19:30 Dextrose (D50w Syringe) 50 ml Q15M PRN IV DECREASED GLUCOSE; Start 01/03/17 at 19:30 Glucagon (Glucagen) 1 mg Q15M PRN IM DECREASED GLUCOSE; Start 01/03/17 at 19:30 Glucose (Glutose) 15 gm Q15M PRN BUCCAL DECREASED GLUCOSE; Start 01/03/17 at 19: 30 Hydrochlorothiazide (Hydrochlorothiazide) 25 mg DAILY PO Last administered on 09:22; Admin Dose 25 MG; Start 01/04/17 at 09:00 Losartan Potassium (Cozaar) 100 mg DAILY PO Last administered on 01/07/17 09: 22; Admin Dose 100 MG; Start 01/04/17 at 09:00 Al Hydrox/Mg Hydrox/Simethicone (Mag-Al Plus) 30 ml Q4H PRN PO GASTROINTESTINAL UPSET Last administered on 01/07/17 11:41; Admin Dose 30 ML; Start 01/05/17 at 00:30 Bisacodyl (Dulcolax Supp) 10 mg DAILY PRN [place] CONSTIPATION Last administered on 01/05/17 00:39; Admin Dose 10 MG; Start 01/05/17 at 00:30 Sodium Biphosphate/ Sodium Phosphate 133 ml 133 ml DAILY PRN [place] CONSTIPATION; Start 01/05/17 at 00:30 Vancomycin HCl/ Sodium Chloride (Vancocin/NS) 250 ml @ 83.333 mls/ hr Q12H IVPB Last administered on 01/07/17 16:05; Admin Dose 83.333 MLS/HR; Start 01/05 at 16:00 Heparin Sodium (Porcine) (Heparin (5000 Units/0.5 ml)) 5,000 unit BID SC Last administered on 01/07/17 09:25; Admin Dose 5,000 UNIT; Start 01/05/17 at 21:00 Hydromorphone HCl (Dilaudid) 1 mg Q4H PRN IV PAIN Last administered on 02:22; Admin Dose 1 MG; Start 01/05/17 at 18:00 Ondansetron HCl (Zofran Inj) 4 mg Q4H PRN IV NAUSEA AND/OR VOMITING; Start 01/05 at 18:00 SHAR HORN NP Jan 07, 2017 17:15
[2017-01-07 20:00] VITALS: BP 164/67; PULSE 79; RESP 18
[2017-01-07] MEDS: CEFTRIAXONE 2 GM/50 ML (PMX) 50 ML IVPB SCH (20:35)
[2017-01-07 21:30] VITALS: BP 120/57; PULSE 70
[2017-01-08] MEDS: VANCOMYCIN 1.5 GM in SOD CHLORIDE 0.9% 250 ML IVPB SCH ×2 (03:39→15:59)
[2017-01-08] MEDS: SOD CHLORIDE 0.9% 1,000 ML IV SCH ×4 (03:39→20:47)
--- NOTE | 2017-01-08 04:14 | PN ---
DATE: 01/07/2017 SUBJECTIVE: No major changes. OBJECTIVE: Painful limited motion of the left knee and tenderness along the calf muscles of the lef t leg. ASSESSMENT AND PLAN: Waiting for transfer to [facility] for higher level of care. Dictated By: ELIZABETH ERNANDEZ/BRANDON Conf#: [id number] DID#: [id number]
[2017-01-08 06:50] LABS: CREATININE 0.55 mg/dl (0.61-1.24)
[2017-01-08 08:27] VITALS: BP 215/89; PULSE 85; RESP 18
[2017-01-08 08:43] VITALS: BP 153/68; PULSE 90; RESP 18
[2017-01-08] MEDS: LOSARTAN 50 MG TAB PO SCH (08:46)
[2017-01-08] MEDS: HYDROCHLOROTHIAZIDE 25 MG TAB PO SCH (08:46)
[2017-01-08] MEDS: DOCUSATE SODIUM 100 MG CAP PO SCH ×2 (08:46→20:52)
[2017-01-08] MEDS: FAMOTIDINE 20 MG TAB PO SCH ×2 (08:46→20:52)
[2017-01-08] MEDS: INSULIN ASPART [NOVOLOG] 3 ML PEN SC SCH ×4 (08:48→20:53)
[2017-01-08] MEDS: HEPARIN 5,000 UNIT/0.5 ML SYG SC SCH ×2 (08:49→20:50)
[2017-01-08] MEDS: HYDROmorphONE 1 MG/ML SYG IV PRN (10:21)
[2017-01-08] MEDS ORDERED: AZITHROMYCIN 250 MG TAB PO ONE (11:00)
--- NOTE | 2017-01-08 11:01 | PN ---
Date/Time of Note Date/Time of Note DATE: 01/08/17 TIME: 10:58 Assessment/Plan VTE Prophylaxis VTE Prophylaxis Intervention: other Lines/Catheters IV [facility]from [facility] Peripheral IV Urinary Cath still in place: No Assessment/Plan Problems: (1) Onychomycosis Status: Chronic Comment: Give pulse therapy of terbinafine and (2) Diabetes mellitus type 2 in obese Status: Chronic Comment: Stable and under control (3) Septic arthritis of knee, left Status: Acute Comment: Awaiting transfer to higher level of care continue antibiotics and hope for the best Qualifiers: Septic arthritis organism: due to unspecified organism Qualified Code: M00.9 - Pyogenic arthritis of left knee joint, due to unspecified organism Subjective 24 Hr Interval Summary Free Text/Dictation Patient sleeping in bed easily aroused Constitutional: no complaints (Denies fevers chills or sweats) Respiratory: no complaints Cardiovascular: no complaints Gastrointestinal: no complaints Genitourinary: no complaints Musculoskeletal: other (Complains of leg pain) Exam/Review of Systems Vital Signs Vitals Vital Signs Date Time Temp Pulse Resp B/P Pulse Ox O2 Delivery O2 Flow Rate FiO2 01/08/17 08:43 98.5 90 18 153/68 92 Room Air Intake and Output 01/07/17 01/07/17 01/08/17 15:00 23:00 07:00 Intake Total 1000 ml 1485.00 ml 1385 ml Output Total 1900 ml 1150 ml Balance 1000 ml -415.00 ml 235 ml Exam Constitutional: alert, oriented Respiratory: clear to auscultation, normal air movement Cardiovascular: nl pulses, regular rate and rhythm Gastrointestinal: nl liver, spleen, non-tender, soft Extremities: other Results Result Diagram: 01/06/17 1000 01/08/17 0521 Results 24 hrs Laboratory Tests Test 01/07/17 11:40 01/07/17 15:10 01/07/17 16:43 01/07/17 20:34 Bedside Glucose 181 111 164 Vancomycin Level Trough 16.6 Test 01/08/17 05:21 01/08/17 07:34 Blood Urea Nitrogen 8 Creatinine 0.55 L Bedside Glucose 144 Medications Medications Current Medications Ceftriaxone Sodium (Rocephin) 50 ml @ 100 mls/hr Q24H IVPB Last administered on 01/07/17t 20:35; Admin Dose 100 MLS/HR; Start 01/03/17 at 19:30 Docusate Sodium (Colace) 100 mg BID PO Last administered on 01/08/17 08:46; Admin Dose 100 MG; Start 01/03/17 at 21:00 Acetaminophen/ Hydrocodone Bitart ([place] (5/325)) 1 tab Q6H PRN PO pain Last administered on 01/07/17 09:28; Admin Dose 1 TAB; Start 01/03/17 at 19:30 Famotidine 20 mg 20 mg BID PO Last administered on 01/08/17 08:46; Admin Dose 20 MG; Start 01/03/17 at 21:00 Sodium Chloride (NS) 1,000 ml @ 125 mls/hr Q8H IV Last administered on 03:39; Admin Dose 125 MLS/HR; Start 01/03/17 at 19:30 Miscellaneous Information 1 ea NOTE XX ; Start 01/03/17 at 19:30 Glucose (Glutose) 15 gm Q15M PRN PO DECREASED GLUCOSE; Start 01/03/17 at 19:30 Glucose (Glutose) 22.5 gm Q15M PRN PO DECREASED GLUCOSE; Start 01/03/17 at 19:30 Dextrose (D50w Syringe) 25 ml Q15M PRN IV DECREASED GLUCOSE; Start 01/03/17 at 19:30 Dextrose (D50w Syringe) 50 ml Q15M PRN IV DECREASED GLUCOSE; Start 01/03/17 at 19:30 Glucagon (Glucagen) 1 mg Q15M PRN IM DECREASED GLUCOSE; Start 01/03/17 at 19:30 Glucose (Glutose) 15 gm Q15M PRN BUCCAL DECREASED GLUCOSE; Start 01/03/17 at 19: 30 Hydrochlorothiazide (Hydrochlorothiazide) 25 mg DAILY PO Last administered on 08:46; Admin Dose 25 MG; Start 01/04/17 at 09:00 Losartan Potassium (Cozaar) 100 mg DAILY PO Last administered on 01/08/17 08: 46; Admin Dose 100 MG; Start 01/04/17 at 09:00 Al Hydrox/Mg Hydrox/Simethicone (Mag-Al Plus) 30 ml Q4H PRN PO GASTROINTESTINAL UPSET Last administered on 01/07/17 11:41; Admin Dose 30 ML; Start 01/05/17 at 00:30 Bisacodyl (Dulcolax Supp) 10 mg DAILY PRN [place] CONSTIPATION Last administered on 01/05/17 00:39; Admin Dose 10 MG; Start 01/05/17 at 00:30 Sodium Biphosphate/ Sodium Phosphate 133 ml 133 ml DAILY PRN [place] CONSTIPATION; Start 01/05/17 at 00:30 Vancomycin HCl/ Sodium Chloride (Vancocin/NS) 250 ml @ 83.333 mls/ hr Q12H IVPB Last administered on 01/08/17 03:39; Admin Dose 83.333 MLS/HR; Start 01/05 at 16:00 Heparin Sodium (Porcine) (Heparin (5000 Units/0.5 ml)) 5,000 unit BID SC Last administered on 01/08/17 08:49; Admin Dose 5,000 UNIT; Start 01/05/17 at 21:00 Hydromorphone HCl (Dilaudid) 1 mg Q4H PRN IV PAIN Last administered on 10:21; Admin Dose 1 MG; Start 01/05/17 at 18:00 Ondansetron HCl (Zofran Inj) 4 mg Q4H PRN IV NAUSEA AND/OR VOMITING; Start 01/05 at 18:00 KAYLYN GUY MD Jan 08, 2017 11:01
[2017-01-08] MEDS ORDERED: CELECOXIB 100 MG CAP PO ONE (12:30)
[2017-01-08] MEDS: TERBINAFINE 250 MG TAB PO SCH ×2 (13:49→20:52)
--- NOTE | 2017-01-08 19:42 | CONS ---
Date/Time of Note Date/Time of Note DATE: 01/08/17 TIME: 19:21 Assessment/Plan Assessment/Plan Chief Complaint/Hosp Course ID PROGRESS NOTE TOTAL ABX DAY #5 => Vanco IV + Ceftriaxone 24H INTERVAL SUMMARY * A/A/O -- doing well on ABX denies N/V/D/SOB/CP * DC PLAN: [facility] RECS: DC the patient home with IV ABX and have patient follow up with Dieter Noe MD = High Risk Ortho Amputation Specialist as an outpatient. * VSS, WBC & renal fx normal ESR 65 * MRI 01/05/17: IMPRESSION: * 1. Redemonstration of extensive abnormal bone marrow signal involving the proximal 7 cm of the tibia concerning for osteomyelitis in this clinical cassette scenario, possibly with superimposed bone infarct. Milder abnormal marrow signal at the periphery of the medial and lateral femoral condyles also could reflect early osteomyelitis versus reactive osteitis. * 2. Large complex peripheral enhancing fluid collection/abscess measuring 8 x 6 x 2 cm overlying the proximal tibial shaft and partially undermining the distal patellar tendon insertion. * 3. Incompletely assessed complex periphery enhancing fluid collection within the medial gastrocnemius and soleus muscles also probably reflects an abscess . This measures greater than 9 x 4 x 2 cm and extends beyond the inferior field of view. * 4. Moderate sized knee joint effusion with synovitis, possibly septic arthritis, to be correlated with fluid sampling. PHYSICAL EXAMINATION: GENERAL: yo lethargic HEENT: Unremarkable NECK: Supple, full ROM CHEST: Equal chest rise bilaterally, without dyspnea on observation HEART: Pulse RRR ABDOMEN: Soft EXTREMITIES: Warm, LLEXT edema/erythema SKIN: See hard chart skin assessment ID ASSESSMENT: 71 yo M admit with: 1. Left knee septic arthritis womplex prox pre-tibial subpatellar fluid collection/absess with osteomyelitis 2. Diabetes. 3. Hypertension. INVASIVES: PIV ABX ALLERGY: KNDA CURRENT ABX: => Vanco IV + Ceftriaxone ID RECOMMENDATIONS: 1. DC PLAN: [facility] RECS: DC the patient home with IV ABX and have patient follow up with Dieter Noe MD = High Risk Ortho Amputation Specialist as an outpatient. 2. DC planning = Primary please order PICC line placement for Monday 3. DC to IV ABX = Total 6 weeks * Ceftriaxone 2GM IVPB daily @ 1730 X 42 Days * Vanco IV 1.5 GM IVPB Q12 H @ 0600 & 1800 with continued dose per outside pharmacist x 42 Days * LABS: draw Vanco Trough, BUN, Serum Creatinine on 01/10/17 prior to 1800 dose called to outpatient pharmacist for continued dose recommendations * BASELINE LABS: Serum Creatinine range: 0.55 - 0.70 // Vanco Trough Levels= 11.1 (01/05/17 @0308); 16.6 (01/07/17 @ 1530) 4. CM DC ABX ordered as above, pending PICC placement per primary MD . Problems: Consultation Date/Type/Reason Admit Date/Time Jan 03, 2017 at 20:43 Exam/Review of Systems Vital Signs Vitals Vital Signs Date Time Temp Pulse Resp B/P Pulse Ox O2 Delivery O2 Flow Rate FiO2 01/08/17 08:43 98.5 90 18 153/68 92 Room Air Intake and Output 01/07/17 01/07/17 01/08/17 15:00 23:00 07:00 Intake Total 1000 ml 1485.00 ml 1385 ml Output Total 1900 ml 1150 ml Balance 1000 ml -415.00 ml 235 ml Results Result Diagram: 01/06/17 1000 01/08/17 0521 Results 24 hrs Laboratory Tests Test 01/07/17 20:34 01/08/17 05:21 01/08/17 07:34 01/08/17 11:33 Bedside Glucose 164 144 198 Blood Urea Nitrogen 8 Creatinine 0.55 L Test 01/08/17 17:07 Bedside Glucose 128 Medications Medications Current Medications Ceftriaxone Sodium (Rocephin) 50 ml @ 100 mls/hr Q24H IVPB Last administered on 01/07/17 20:35; Admin Dose 100 MLS/HR; Start 01/03/17 at 19:30 Docusate Sodium (Colace) 100 mg BID PO Last administered on 01/08/17 08:46; Admin Dose 100 MG; Start 01/03/17 at 21:00 Acetaminophen/ Hydrocodone Bitart ([place] (5/325)) 1 tab Q6H PRN PO pain Last administered on 01/07/17 09:28; Admin Dose 1 TAB; Start 01/03/17 at 19:30 Famotidine 20 mg 20 mg BID PO Last administered on 01/08/17 08:46; Admin Dose 20 MG; Start 01/03/17 at 21:00 Sodium Chloride (NS) 1,000 ml @ 125 mls/hr Q8H IV Last administered on 13:50; Admin Dose 125 MLS/HR; Start 01/03/17 at 19:30 Miscellaneous Information 1 ea NOTE XX ; Start 01/03/17 at 19:30 Glucose (Glutose) 15 gm Q15M PRN PO DECREASED GLUCOSE; Start 01/03/17 at 19:30 Glucose (Glutose) 22.5 gm Q15M PRN PO DECREASED GLUCOSE; Start 01/03/17 at 19:30 Dextrose (D50w Syringe) 25 ml Q15M PRN IV DECREASED GLUCOSE; Start 01/03/17 at 19:30 Dextrose (D50w Syringe) 50 ml Q15M PRN IV DECREASED GLUCOSE; Start 01/03/17 at 19:30 Glucagon (Glucagen) 1 mg Q15M PRN IM DECREASED GLUCOSE; Start 01/03/17 at 19:30 Glucose (Glutose) 15 gm Q15M PRN BUCCAL DECREASED GLUCOSE; Start 01/03/17 at 19: 30 Hydrochlorothiazide (Hydrochlorothiazide) 25 mg DAILY PO Last administered on 08:46; Admin Dose 25 MG; Start 01/04/17 at 09:00 Losartan Potassium (Cozaar) 100 mg DAILY PO Last administered on 01/08/17 08: 46; Admin Dose 100 MG; Start 01/04/17 at 09:00 Al Hydrox/Mg Hydrox/Simethicone (Mag-Al Plus) 30 ml Q4H PRN PO GASTROINTESTINAL UPSET Last administered on 01/07/17 11:41; Admin Dose 30 ML; Start 01/05/17 at 00:30 Bisacodyl (Dulcolax Supp) 10 mg DAILY PRN [place] CONSTIPATION Last administered on 01/05/17 00:39; Admin Dose 10 MG; Start 01/05/17 at 00:30 Sodium Biphosphate/ Sodium Phosphate 133 ml 133 ml DAILY PRN [place] CONSTIPATION; Start 01/05/17 at 00:30 Vancomycin HCl/ Sodium Chloride (Vancocin/NS) 250 ml @ 83.333 mls/ hr Q12H IVPB Last administered on 01/08/17 15:59; Admin Dose 83.333 MLS/HR; Start 01/05 at 16:00 Heparin Sodium (Porcine) (Heparin (5000 Units/0.5 ml)) 5,000 unit BID SC Last administered on 01/08/17 08:49; Admin Dose 5,000 UNIT; Start 01/05/17 at 21:00 Hydromorphone HCl (Dilaudid) 1 mg Q4H PRN IV PAIN Last administered on 10:21; Admin Dose 1 MG; Start 01/05/17 at 18:00 Ondansetron HCl (Zofran Inj) 4 mg Q4H PRN IV NAUSEA AND/OR VOMITING; Start 01/05 at 18:00 Celecoxib (Celebrex) 100 mg BID PO ; Start 01/08/17 at 21:00 Terbinafine HCl (Lamisil) 250 mg BID PO Last administered on 01/08/17 13:49; Admin Dose 250 MG; Start 01/08/17 at 12:00; Stop 01/15/17 at 11:59 SHAR HORN NP Jan 08, 2017 19:33
[2017-01-08] MEDS: CEFTRIAXONE 2 GM/50 ML (PMX) 50 ML IVPB SCH (20:47)
[2017-01-08] MEDS: CELECOXIB 100 MG CAP PO SCH (20:50)
[2017-01-08 21:00] VITALS: BP 148/68; PULSE 75
[2017-01-08 21:33] VITALS: BP 169/74; RESP 20
[2017-01-08] MEDS: HYDROCODONE/APAP (5/325) TAB PO PRN (21:58)
[2017-01-08 22:00] VITALS: BP 148/67; PULSE 75
[2017-01-09] MEDS: SOD CHLORIDE 0.9% 1,000 ML IV SCH ×3 (01:36→19:30)
[2017-01-09] MEDS: VANCOMYCIN 1.5 GM in SOD CHLORIDE 0.9% 250 ML IVPB SCH ×2 (03:39→15:09)
[2017-01-09 05:57] LABS: ADD SCAN DIFF NO
[2017-01-09 06:18] LABS: BASOPHILS % 0.5 % (0.0-2.0); EOSINOPHILS # 0.2 10^3/ul (0.0-0.5); EOSINOPHILS % 3.2 % (0.0-7.0); HEMATOCRIT 32.5 % (42.0-52.0); LYMPHOCYTES % 17.1 % (15.0-51.0); MEAN CORPUSCULAR HEMOGLOBIN 26.7 pg (29.0-33.0); MEAN CORPUSCULAR HGB CONC 30.8 g/dl (32.0-37.0); MEAN CORPUSCULAR VOLUME 86.7 fl (82.0-101.0); MEAN PLATELET VOLUME 11.6 fl (7.4-10.4); MONOCYTE # 0.6 10^3/ul (0.3-0.9); MONOCYTES % 9.3 % (0.0-11.0); NEUTROPHIL # 4.1 10^3/ul (1.6-7.5); NEUTROPHILS % 69.2 % (39.0-77.0); PLATELET COUNT 175 10^3/UL (140-415); RED BLOOD COUNT 3.75 10^6/ul (4.70-6.10); RED CELL DISTRIBUTION WIDTH 13.9 % (11.5-14.5); WHITE BLOOD COUNT 5.9 10^3/ul (4.8-10.8)
[2017-01-09 06:30] LABS: ALBUMIN 2.8 g/dl (3.3-4.9)
[2017-01-09 06:31] LABS: POTASSIUM 3.6 mmol/L (3.5-5.1)
[2017-01-09 06:33] LABS: ALBUMIN/GLOBULIN RATIO 0.84; BILIRUBIN,INDIRECT 0.1 mg/dl (0-1.1); BILIRUBIN,TOTAL 0.1 mg/dl (0.2-1.3); CREATININE 0.56 mg/dl (0.61-1.24); TOTAL PROTEIN 6.1 g/dl (6.1-8.1)
[2017-01-09 06:34] LABS: CALCIUM 8.1 mg/dl (8.4-10.2)
[2017-01-09] MEDS: HYDROCODONE/APAP (5/325) TAB PO PRN ×2 (07:21→20:07)
[2017-01-09 07:30] VITALS: BP 145/65; RESP 18
[2017-01-09] MEDS: INSULIN ASPART [NOVOLOG] 3 ML PEN SC SCH ×4 (08:30→20:12)
[2017-01-09] MEDS: HEPARIN 5,000 UNIT/0.5 ML SYG SC SCH ×2 (08:31→20:13)
[2017-01-09] MEDS: TERBINAFINE 250 MG TAB PO SCH ×2 (08:32→20:08)
[2017-01-09] MEDS: HYDROCHLOROTHIAZIDE 25 MG TAB PO SCH (08:33)
[2017-01-09] MEDS: LOSARTAN 50 MG TAB PO SCH (08:33)
[2017-01-09] MEDS: CELECOXIB 100 MG CAP PO SCH ×2 (08:33→20:07)
[2017-01-09] MEDS: DOCUSATE SODIUM 100 MG CAP PO SCH ×2 (08:33→20:07)
[2017-01-09] MEDS: FAMOTIDINE 20 MG TAB PO SCH ×2 (08:33→20:07)
[2017-01-09] MEDS: AL HYDROX/MG HYDROX/SIMETH 30 ML CUP PO PRN (12:40)
--- NOTE | 2017-01-09 12:56 | CONS ---
Date/Time of Note Date/Time of Note DATE: 01/09/17 TIME: 12:55 Assessment/Plan Assessment/Plan Chief Complaint/Hosp Course SUBJECTIVE: No events overnight. The patient is alert, looks comfortable, feels good. No fevers. No nausea, vomiting, diarrhea. ANTIMICROBIALS: 1. IV vancomycin. 2. Rocephin. MICROBIOLOGY: Blood cultures had been negative. PHYSICAL EXAMINATION: GENERAL: This is well-developed, elderly man who is alert, in no distress. HEENT: Head atraumatic, normocephalic. Sclerae anicteric. Buccal mucosa pink. NECK: Supple. CHEST: Rise symmetrical. Breath sounds clear. HEART: S1, S2. ABDOMEN: Soft, bowel tones present. EXTREMITIES: Left lower extremity erythema below knee and swelling. ASSESSMENT: 1. Left knee osteomyelitis with septic arthritis. 2. Diabetes. 3. Hypertension. PLAN: The patient remains stable. He is being seen by Dr. Campos in ortho consultation. He is on broad spectrum antibiotics, which we will continue. Patient will require 6 weeks IV antibiotics and may need surgical intervention. Will order PICC [facility] staff Problems: Consultation Date/Type/Reason Admit Date/Time Jan 03, 2017 at 20:43 Initial Consult Date Type of Consultation: ID Exam/Review of Systems Vital Signs Vitals Vital Signs Date Time Temp Pulse Resp B/P Pulse Ox O2 Delivery O2 Flow Rate FiO2 01/09/17 07:30 97.7 79 18 145/65 95 01/08/17 08:43 Room Air Intake and Output 01/08/17 01/08/17 01/09/17 15:00 23:00 07:00 Intake Total 250 ml 1320 ml 2100 ml Output Total 928 ml 1100 ml Balance 250 ml 392 ml 1000 ml Results Result Diagram: 01/09/17 0430 01/09/17 0430 Results 24 hrs Laboratory Tests Test 01/08/17 17:07 01/08/17 20:46 01/09/17 04:30 01/09/17 08:02 Bedside Glucose 128 119 142 Alanine Aminotransferase (ALT/SGPT) 23 Albumin 2.8 L Albumin/Globulin Ratio 0.84 Alkaline Phosphatase 81 Anion Gap 15 Aspartate Amino Transf (AST/SGOT) 19 Basophils # 0.0 Basophils % 0.5 Blood Urea Nitrogen 8 Calcium Level 8.1 L Carbon Dioxide Level 28 Chloride Level 103 Creatinine 0.56 L Direct Bilirubin 0.00 Eosinophils # 0.2 Eosinophils % 3.2 Erythrocyte Sedimentation Rate 75 H Globulin 3.30 H Glucose Level 141 Hematocrit 32.5 L Hemoglobin 10.0 L Indirect Bilirubin 0.1 Lymphocytes # 1.0 Lymphocytes % 17.1 Mean Corpuscular Hemoglobin 26.7 L Mean Corpuscular Hemoglobin Concent 30.8 L Mean Corpuscular Volume 86.7 Mean Platelet Volume 11.6 H Monocytes # 0.6 Monocytes % 9.3 Neutrophils # 4.1 Neutrophils % 69.2 Nucleated Red Blood Cells # 0.0 Nucleated Red Blood Cells % 0.0 Platelet Count 175 # Potassium Level 3.6 Red Blood Count 3.75 L Red Cell Distribution Width 13.9 Sodium Level 142 Total Bilirubin 0.1 L Total Protein 6.1 White Blood Count 5.9 Test 01/09/17 11:41 Bedside Glucose 152 Medications Medications Current Medications Ceftriaxone Sodium (Rocephin) 50 ml @ 100 mls/hr Q24H IVPB Last administered on 01/08/17 20:47; Admin Dose 100 MLS/HR; Start 01/03/17 at 19:30 Docusate Sodium (Colace) 100 mg BID PO Last administered on 01/09/17 08:33; Admin Dose 100 MG; Start 01/03/17 at 21:00 Acetaminophen/ Hydrocodone Bitart ([place] (5/325)) 1 tab Q6H PRN PO pain Last administered on 01/09/17 07:21; Admin Dose 1 TAB; Start 01/03/17 at 19:30 Famotidine 20 mg 20 mg BID PO Last administered on 01/09/17 08:33; Admin Dose 20 MG; Start 01/03/17 at 21:00 Sodium Chloride (NS) 1,000 ml @ 125 mls/hr Q8H IV Last administered on 01:36; Admin Dose 125 MLS/HR; Start 01/03/17 at 19:30 Miscellaneous Information 1 ea NOTE XX ; Start 01/03/17 at 19:30 Glucose (Glutose) 15 gm Q15M PRN PO DECREASED GLUCOSE; Start 01/03/17 at 19:30 Glucose (Glutose) 22.5 gm Q15M PRN PO DECREASED GLUCOSE; Start 01/03/17 at 19:30 Dextrose (D50w Syringe) 25 ml Q15M PRN IV DECREASED GLUCOSE; Start 01/03/17 at 19:30 Dextrose (D50w Syringe) 50 ml Q15M PRN IV DECREASED GLUCOSE; Start 01/03/17 at 19:30 Glucagon (Glucagen) 1 mg Q15M PRN IM DECREASED GLUCOSE; Start 01/03/17 at 19:30 Glucose (Glutose) 15 gm Q15M PRN BUCCAL DECREASED GLUCOSE; Start 01/03/17 at 19: 30 Hydrochlorothiazide (Hydrochlorothiazide) 25 mg DAILY PO Last administered on 08:33; Admin Dose 25 MG; Start 01/04/17 at 09:00 Losartan Potassium (Cozaar) 100 mg DAILY PO Last administered on 01/09/17 08: 33; Admin Dose 100 MG; Start 01/04/17 at 09:00 Al Hydrox/Mg Hydrox/Simethicone (Mag-Al Plus) 30 ml Q4H PRN PO GASTROINTESTINAL UPSET Last administered on 01/09/17 12:40; Admin Dose 30 ML; Start 01/05/17 at 00:30 Bisacodyl (Dulcolax Supp) 10 mg DAILY PRN [place] CONSTIPATION Last administered on 01/05/17 00:39; Admin Dose 10 MG; Start 01/05/17 at 00:30 Sodium Biphosphate/ Sodium Phosphate 133 ml 133 ml DAILY PRN [place] CONSTIPATION; Start 01/05/17 at 00:30 Vancomycin HCl/ Sodium Chloride (Vancocin/NS) 250 ml @ 83.333 mls/ hr Q12H IVPB Last administered on 01/09/17 03:39; Admin Dose 83.333 MLS/HR; Start 01/05 at 16:00 Heparin Sodium (Porcine) (Heparin (5000 Units/0.5 ml)) 5,000 unit BID SC Last administered on 01/09/17 08:31; Admin Dose 5,000 UNIT; Start 01/05/17 at 21:00 Hydromorphone HCl (Dilaudid) 1 mg Q4H PRN IV PAIN Last administered on 10:21; Admin Dose 1 MG; Start 01/05/17 at 18:00 Ondansetron HCl (Zofran Inj) 4 mg Q4H PRN IV NAUSEA AND/OR VOMITING; Start 01/05 at 18:00 Celecoxib (Celebrex) 100 mg BID PO Last administered on 01/09/17 08:33; Admin Dose 100 MG; Start 01/08/17 at 21:00 Terbinafine HCl (Lamisil) 250 mg BID PO Last administered on 01/09/17 08:32; Admin Dose 250 MG; Start 01/08/17 at 12:00; Stop 01/15/17 at 11:59 Miscellaneous Information (*Rx Drug Level Order Reminder*) VANCOMYCIN TROUGH AT 1500 ONCE ONCE XX ; Start 01/10/17 at 15:00; Stop 01/10/17 at 15:01 MAGGI JONES NP Jan 09, 2017 12:56
--- NOTE | 2017-01-09 15:36 | PN ---
Date/Time of Note Date/Time of Note DATE: 01/09/17 TIME: 15:28 Assessment/Plan VTE Prophylaxis VTE Prophylaxis Intervention: heparin Lines/Catheters IV Catheter Type (from Nrs): Peripheral IV Urinary Cath still in place: No Assessment/Plan Assessment/Plan 1. Left knee and lower extremity infection with abscess formation and proximal tibia osteomyelitis , antibiotics(rocephin/vanco), follow up with Dr. Campos for further treatment. Talked to patient about options. case discussed with case investigator about transfer 2. Hypertension, controlled. 3. Diabetes mellitus type 2. ISS, will start metformin(he got iv contrast 2016) 8. Dyslipidemia. 9. Chronic asthma 10. Chronic normocytic anemia, stable 11. DVT prophylaxis: heparin Subjective 24 Hr Interval Summary Free Text/Dictation still with left knee pain and swelling. talked to case investigator Exam/Review of Systems Vital Signs Vitals Vital Signs Date Time Temp Pulse Resp B/P Pulse Ox O2 Delivery O2 Flow Rate FiO2 01/09/17 07:30 97.7 79 18 145/65 95 01/08/17 08:43 Room Air Intake and Output 01/08/17 01/08/17 01/09/17 15:00 23:00 07:00 Intake Total 250 ml 1320 ml 2100 ml Output Total 928 ml 1100 ml Balance 250 ml 392 ml 1000 ml Exam Constitutional: alert, oriented, well developed Psych: nl mood/affect, no complaints Head: atraumatic, normocephalic Eyes: EOMI, nl conjunctiva, nl lids ENMT: nl external ears & nose, nl lips & teeth, nl nasal mucosa & septum Neck: non-tender, supple Respiratory: clear to auscultation, normal air movement, No congested cough, No crackles/rales, No diminished breath sounds, No intercostal retraction, No labored breathing, No other, No respirations, No tactile fremitus, No wheezing Cardiovascular: nl pulses, regular rate and rhythm, No S3, No S4, No bruits, No diastolic murmur, No edema, No gallop, No irregular rhythm, No jugular venous distention (JVD), No murmurs/extra sounds, No other, No rub, No systolic murmur Gastrointestinal: nl liver, spleen, non-tender, soft, No ascites, No bowel sounds, No distended, No firm, No hepatomegaly, No mass , No other, No rebound or guarding, No splenomegaly, No surgical scars, No tender Musculoskeletal: other (leftg knee and lower extremity swelling, redness and tenderness) Extremities: normal pulses, No clubbing, No cyanosis Neurological: [employer] II-XII intact, nl mental status, nl speech, nl strength Lymph: nl lymph nodes Results Result Diagram: 01/09/17 0430 01/09/17 0430 Results 24 hrs Laboratory Tests Test 01/08/17 17:07 01/08/17 20:46 01/09/17 04:30 01/09/17 08:02 Bedside Glucose 128 119 142 Alanine Aminotransferase (ALT/SGPT) 23 Albumin 2.8 L Albumin/Globulin Ratio 0.84 Alkaline Phosphatase 81 Anion Gap 15 Aspartate Amino Transf (AST/SGOT) 19 Basophils # 0.0 Basophils % 0.5 Blood Urea Nitrogen 8 Calcium Level 8.1 L Carbon Dioxide Level 28 Chloride Level 103 Creatinine 0.56 L Direct Bilirubin 0.00 Eosinophils # 0.2 Eosinophils % 3.2 Erythrocyte Sedimentation Rate 75 H Globulin 3.30 H Glucose Level 141 Hematocrit 32.5 L Hemoglobin 10.0 L Indirect Bilirubin 0.1 Lymphocytes # 1.0 Lymphocytes % 17.1 Mean Corpuscular Hemoglobin 26.7 L Mean Corpuscular Hemoglobin Concent 30.8 L Mean Corpuscular Volume 86.7 Mean Platelet Volume 11.6 H Monocytes # 0.6 Monocytes % 9.3 Neutrophils # 4.1 Neutrophils % 69.2 Nucleated Red Blood Cells # 0.0 Nucleated Red Blood Cells % 0.0 Platelet Count 175 # Potassium Level 3.6 Red Blood Count 3.75 L Red Cell Distribution Width 13.9 Sodium Level 142 Total Bilirubin 0.1 L Total Protein 6.1 White Blood Count 5.9 Test 01/09/17 11:41 Bedside Glucose 152 Medications Medications Current Medications Ceftriaxone Sodium (Rocephin) 50 ml @ 100 mls/hr Q24H IVPB Last administered on 01/08/17 20:47; Admin Dose 100 MLS/HR; Start 01/03/17 at 19:30 Docusate Sodium (Colace) 100 mg BID PO Last administered on 01/09/17 08:33; Admin Dose 100 MG; Start 01/03/17 at 21:00 Acetaminophen/ Hydrocodone Bitart ([place] (5/325)) 1 tab Q6H PRN PO pain Last administered on 01/09/17 07:21; Admin Dose 1 TAB; Start 01/03/17 at 19:30 Famotidine 20 mg 20 mg BID PO Last administered on 01/09/17 08:33; Admin Dose 20 MG; Start 01/03/17 at 21:00 Sodium Chloride (NS) 1,000 ml @ 125 mls/hr Q8H IV Last administered on 13:22; Admin Dose 125 MLS/HR; Start 01/03/17 at 19:30 Miscellaneous Information 1 ea NOTE XX ; Start 01/03/17 at 19:30 Glucose (Glutose) 15 gm Q15M PRN PO DECREASED GLUCOSE; Start 01/03/17 at 19:30 Glucose (Glutose) 22.5 gm Q15M PRN PO DECREASED GLUCOSE; Start 01/03/17 at 19:30 Dextrose (D50w Syringe) 25 ml Q15M PRN IV DECREASED GLUCOSE; Start 01/03/17 at 19:30 Dextrose (D50w Syringe) 50 ml Q15M PRN IV DECREASED GLUCOSE; Start 01/03/17 at 19:30 Glucagon (Glucagen) 1 mg Q15M PRN IM DECREASED GLUCOSE; Start 01/03/17 at 19:30 Glucose (Glutose) 15 gm Q15M PRN BUCCAL DECREASED GLUCOSE; Start 01/03/17 at 19: 30 Hydrochlorothiazide (Hydrochlorothiazide) 25 mg DAILY PO Last administered on 08:33; Admin Dose 25 MG; Start 01/04/17 at 09:00 Losartan Potassium (Cozaar) 100 mg DAILY PO Last administered on 01/09/17 08: 33; Admin Dose 100 MG; Start 01/04/17 at 09:00 Al Hydrox/Mg Hydrox/Simethicone (Mag-Al Plus) 30 ml Q4H PRN PO GASTROINTESTINAL UPSET Last administered on 01/09/17 12:40; Admin Dose 30 ML; Start 01/05/17 at 00:30 Bisacodyl (Dulcolax Supp) 10 mg DAILY PRN [place] CONSTIPATION Last administered on 01/05/17 00:39; Admin Dose 10 MG; Start 01/05/17 at 00:30 Sodium Biphosphate/ Sodium Phosphate 133 ml 133 ml DAILY PRN [place] CONSTIPATION; Start 01/05/17 at 00:30 Vancomycin HCl/ Sodium Chloride (Vancocin/NS) 250 ml @ 83.333 mls/ hr Q12H IVPB Last administered on 01/09/17 15:09; Admin Dose 83.333 MLS/HR; Start 01/05 at 16:00 Heparin Sodium (Porcine) (Heparin (5000 Units/0.5 ml)) 5,000 unit BID SC Last administered on 01/09/17 08:31; Admin Dose 5,000 UNIT; Start 01/05/17 at 21:00 Hydromorphone HCl (Dilaudid) 1 mg Q4H PRN IV PAIN Last administered on 10:21; Admin Dose 1 MG; Start 01/05/17 at 18:00 Ondansetron HCl (Zofran Inj) 4 mg Q4H PRN IV NAUSEA AND/OR VOMITING; Start 01/05 at 18:00 Celecoxib (Celebrex) 100 mg BID PO Last administered on 01/09/17 08:33; Admin Dose 100 MG; Start 01/08/17 at 21:00 Terbinafine HCl (Lamisil) 250 mg BID PO Last administered on 01/09/17 08:32; Admin Dose 250 MG; Start 01/08/17 at 12:00; Stop 01/15/17 at 11:59 Miscellaneous Information (*Rx Drug Level Order Reminder*) VANCOMYCIN TROUGH AT 1500 ONCE ONCE XX ; Start 01/10/17 at 15:00; Stop 01/10/17 at 15:01 EVELINA LUNDBERG MD Jan 09, 2017 15:36
[2017-01-09] MEDS ORDERED: LIDOCAINE 1% (MDV) 20 ML INJ SC ONE (16:00)
[2017-01-09] MEDS: CEFTRIAXONE 2 GM/50 ML (PMX) 50 ML IVPB SCH (18:06)
[2017-01-09 20:07] VITALS: BP 152/70; RESP 18
--- NOTE | 2017-01-09 20:25 | PN ---
DATE: 01/09/2017 Still waiting for possible transfer to [facility], preferably in the [facility] here the orthopedic surgical infection specialist is available. WBC scan which was ordered several days ago could be finally done because the material is available. I felt WBC scan is needed to define the extent of involvement in the infection involving distal fe mur and elsewhere. Dictated By: ELIZABETH ERNANDEZ/BRANDON Conf#: [id number] DID#: [id number]
[2017-01-10] MEDS: SOD CHLORIDE 0.9% 1,000 ML IV SCH ×2 (01:30→11:30)
[2017-01-10] MEDS: HYDROCODONE/APAP (5/325) TAB PO PRN ×2 (02:09→10:05)
[2017-01-10] MEDS: AL HYDROX/MG HYDROX/SIMETH 30 ML CUP PO PRN (02:41)
[2017-01-10] MEDS: VANCOMYCIN 1.5 GM in SOD CHLORIDE 0.9% 250 ML IVPB SCH (04:14)
[2017-01-10] MEDS: DOCUSATE SODIUM 100 MG CAP PO SCH (08:06)
[2017-01-10] MEDS: LOSARTAN 50 MG TAB PO SCH (08:06)
[2017-01-10] MEDS: TERBINAFINE 250 MG TAB PO SCH (08:06)
[2017-01-10] MEDS: HYDROCHLOROTHIAZIDE 25 MG TAB PO SCH (08:08)
[2017-01-10] MEDS: CELECOXIB 100 MG CAP PO SCH (08:09)
[2017-01-10] MEDS: FAMOTIDINE 20 MG TAB PO SCH (08:09)
[2017-01-10] MEDS: HEPARIN 5,000 UNIT/0.5 ML SYG SC SCH (08:09)
[2017-01-10] MEDS: INSULIN ASPART [NOVOLOG] 3 ML PEN SC SCH ×2 (08:10→12:06)
[2017-01-10 08:16] VITALS: BP 140/61; RESP 16
--- NOTE | 2017-01-10 16:12 | CONS ---
Date/Time of Note Date/Time of Note DATE: 01/10/17 TIME: 16:10 Assessment/Plan Assessment/Plan Chief Complaint/Hosp Course SUBJECTIVE: No events overnight. The patient is alert, looks comfortable, No fevers. No nausea, vomiting, diarrhea. ANTIMICROBIALS: 1. IV vancomycin. 2. Rocephin. MICROBIOLOGY: Blood cultures had been negative. PHYSICAL EXAMINATION: GENERAL: This is well-developed, elderly man who is alert, in no distress. HEENT: Head atraumatic, normocephalic. Sclerae anicteric. Buccal mucosa pink. NECK: Supple. CHEST: Rise symmetrical. Breath sounds clear. HEART: S1, S2. ABDOMEN: Soft, bowel tones present. EXTREMITIES: Left lower extremity erythema below knee and swelling. ASSESSMENT: 1. Left knee osteomyelitis with septic arthritis. 2. Diabetes. 3. Hypertension. PLAN: The patient remains stable. He is being seen by Dr. Campos in ortho consultation. He is on broad spectrum antibiotics, which we will continue. Patient will require 6 weeks IV antibiotics possibly longer , needs surgical intervention==> at tertiary care facility per ortho rec-s. [facility] staff Problems: Consultation Date/Type/Reason Admit Date/Time Jan 03, 2017 at 20:43 Type of Consultation: ID Exam/Review of Systems Vital Signs Vitals Vital Signs Date Time Temp Pulse Resp B/P Pulse Ox O2 Delivery O2 Flow Rate FiO2 01/10/17 08:16 98.3 77 16 140/61 94 01/08/17 08:43 Room Air Intake and Output 01/09/17 01/09/17 01/10/17 15:00 23:00 07:00 Intake Total 900 ml 1770 ml 1400 ml Output Total 1400 ml 1100 ml Balance 900 ml 370 ml 300 ml Results Result Diagram: 01/09/17 0430 01/09/17 0430 Results 24 hrs Laboratory Tests Test 01/09/17 16:19 01/09/17 19:39 01/10/17 02:11 01/10/17 07:47 Bedside Glucose 133 186 131 142 Test 01/10/17 11:37 Bedside Glucose 181 MAGGI JONES NP Jan 10, 2017 16:12
--- NOTE | 2017-01-10 16:26 | DS ---
Date/Time of Note Date/Time of Note DATE: 01/10/17 TIME: 16:22 Discharge Summary Admission/Discharge Info Admit Date/Time Jan 03, 2017 at 20:43 Discharge Date/Time Jan 10, 2017 at 15:43 Final Diagnosis Note: Patient signed out AMA Diagnoses 1. Left knee and lower extremity infection with abscess formation and proximal tibia osteomyelitis , status post antibiotics(rocephin/vanco), orthopedic surgeon was consulted. Talked to patient about options. case discussed with case picker about transfer 2. Hypertension, 3. Diabetes mellitus type 2. ISS, 8. Dyslipidemia. 9. Chronic asthma 10. Chronic normocytic anemia, stable 11. DVT prophylaxis: heparin Hospital Course Mr. Henry is a pleasant 71-year-old male who was recently in [place] late last year and at that time was managed for left lower extremity cellulitis with inpatient hospitalization, IV antibiotics. He was discharged on oral medications and seemed to be getting better but developed knee pain over the last 3 weeks associated with warmth and swelling. He does not recall trauma to the lower extremity, and this affects only his left knee. It has been associated with difficulty walking, has been trying to control it with oral analgesics. However, the pain continued to worsen, so he came to the emergency room to be evaluated. Patient was seen and evaluated by orthopedic surgeon, infectious disease doctor and was placed on broad-spectrum IV antibiotics. As per orthopedic surgeon the surgery was a high risk and case picker was consulted to transfer patient to a higher level of care although today on patient decided to sign out AMA understanding that he is taking the risk of worsening his condition. He understood the risk was worsening of his infection possible loss of his limb, sepsis, possible Home Meds Reported Medications Hydrochlorothiazide (Hydrochlorothiazide) 25 Mg Tablet, 25 MG PO DAILY, #30 TAB 01/03/17 Telmisartan (Telmisartan) 80 Mg Tablet, 80 MG PO DAILY, TAB 01/03/17 Glyburide/Metformin HCl (Glucovance 5-500 mg Tablet) 1 Each Tablet, 1 EACH PO BID WITH MEALS, TAB 01/03/17 Pending Labs Laboratory Tests Test 01/09/17 19:39 01/10/17 02:11 01/10/17 07:47 01/10/17 11:37 Bedside Glucose 186mg/dL (70-220) 131mg/dL (70-220) 142mg/dL (70-220) 181mg/dL (70-220) SAADIA SHI MD Jan 10, 2017 16:25
== END 2017-01-10 15:43 | disposition left against medical advice (07) | DRG 540 ==
LOC: FTE 12:50 → PP2 20:30
PROVIDERS: ADMIT Family Medicine; ATTEND Family Medicine
PROC: 0S9D3ZX Drainage of Left Knee Joint, Percutaneous Approach, Diagnostic (ICD-10-PCS; principal; 2017-01-03)
DX: M86.8X6 Other osteomyelitis, lower leg (principal); M00.9 Pyogenic arthritis, unspecified; L02.416 Cutaneous abscess of left lower limb; E11.9 Type 2 diabetes mellitus without complications; I10 Essential (primary) hypertension; B35.1 Tinea unguium; J98.11 Atelectasis; M00.862 Arthritis due to other bacteria, left knee; D50.9 Iron deficiency anemia, unspecified; J45.909 Unspecified asthma, uncomplicated; D50.8 Other iron deficiency anemias; E78.5 Hyperlipidemia, unspecified
CPT/HCPCS: 36415; 71010; 73562; 73718; 73721; 80048; 80053; 80061; 80202; 82565; 82962; 83540; 83690; 83735; 84443; 84520; 85025; 85610; 85651; 85730; 86140; 87040; 87070; 87081; 93971; 96365; 96366; 96375; J1170; J1815; J2270; J2405; J2543; J3370; J7030; J7050